=== PATIENT | male | born 1940 | race Caucasian/White ===

== ENCOUNTER 2017-05-27 01:18 | Inpatient (IN) | payer MEDICARE, BC ==
[2017-05-27] MEDS ORDERED: methylPREDNISolone Sod Succ/PF 125 MG/2 ML VIAL ONE (01:47)
[2017-05-27 01:58] LABS: Actual Bicarbonate (HCO3a) 23.3 mEq/L (22-26); Base Excess (BEa) -1.6 mEq/L (0 (+/-) 2.5); CO2 Tension 40.3 mmHg (35.0-45.0); Hematocrit-ABG 42.5 % (42.0-52.0); Hemoglobin (Hb) 13.8 g/dL (14.0-18.0); O2 Tension (PaO2) 163.4 mmHg (80.0-100.0); pH, Arterial 7.38 (7.35-7.45)
[2017-05-27 01:59] LABS: ALV-art Gradient 69.425 (0-20); Analyzer IN Cardio ER; Calcium, Ionized 1.2 mmol/L (1.12-1.30); Puncture Site RRA
[2017-05-27 02:19] LABS: #Eosinphils 0.2 thou/uL (0.0-0.7); #Monocytes 0.4 thou/uL (0.11-0.59); #Neutrophils 2.1 thou/uL (1.40-6.50); %Basophils 0.6 % (0.0-1.0); %Eosinophils 6.5 % (0.0-10.0); %Lymphocytes 26.9 % (21.0-51.0); Hemoglobin 13.8 g/dL (14.0-18.0); Mean Corpuscular Hemoglobin 30.6 pg (27.0-31.0); Mean Corpuscular Volume 90.2 fl (80.0-94.0); Mean Platelet Volume 8.3 fL (7.4-10.4); Platelet Count 128 thou/uL (130-400); RBC Distribution Width 12.4 % (11.5-14.5); Red Blood Cell (RBC) Count 4.51 mill/uL (4.70-6.10); White Blood Cell (WBC) Count 3.8 thou/uL (4.8-10.8)
[2017-05-27 02:43] LABS: ALT (SGPT) 19 U/L (8-55); AST (SGOT) 21 U/L (5-34); Albumin 4.3 g/dL (3.4-4.8); Alkaline Phosphatase 74 U/L (40-150); Anion Gap 14 mmol/L (10-20); BUN (Urea Nitrogen) 15 mg/dL (8.4-25.7); Bilirubin, Total 0.5 mg/dL (0.2-1.2); Calc. Creatinine Clearance 0 mL/min (70-130); Calcium 9.5 mg/dL (7.8-10.44); Carbon Dioxide 26 mmol/L (23-31); Chloride 104 mmol/L (98-107); Estimated GFR-MDRD 52; Globulin 3.1 g/dL (2.4-3.5); Glucose 118 mg/dL (83-110); Protein, Total 7.4 g/dL (5.8-8.1); Sodium 140 mmol/L (136-145)
[2017-05-27 02:47] LABS: CKMB 1.6 ng/mL (0-6.6); Troponin I Less than 0.010 ng/mL (< 0.028)
[2017-05-27] MEDS ORDERED: Ondansetron HCl/PF 4 MG/2 ML Vial IVP PRN (06:20)
[2017-05-27] MEDS ORDERED: Acetaminophen 325 MG TAB PO PRN ×2 (06:20→09:56)
[2017-05-27] MEDS ORDERED: Ondansetron ODT 4 MG TAB SL PRN (06:20)
[2017-05-27 06:29] VITALS: BMI 30.4
--- NOTE | 2017-05-27 07:58 | RAD ---
CHEST 2 VIEWS: HISTORY: Dyspnea. COMPARISON: 08/29/15. FINDINGS: Stable left-sided defibrillator. Slight elongation of the aorta. Normal cardiac silhouette. Pulmon reg vessels and hilum are normal. Costophrenic angles are clear. No consolidation or mass. No pneu mothorax. No osseous abnormalities. Chronic changes along the distal thoracic spine and upper lumba r spine. IMPRESSION: No acute cardiopulmonary process. POS: SHANA
[2017-05-27] MEDS ORDERED: Ibuprofen 800 MG TAB PO PRN (09:03)
[2017-05-27] MEDS ORDERED: guaiFENesin ER 600 MG TAB PO PRN (09:03)
--- NOTE | 2017-05-27 09:42 | CON ---
DATE OF CONSULTATION: 05/27/2017 CONSULTING PHYSICIAN: Hospitalist group. REASON FOR CONSULTATION: COPD exacerbation. HISTORY OF PRESENT ILLNESS: A 76-year-old male who came to the emergency room last night with increa sed wheezing and shortness of breath. He had seen his primary care doctor earlier in the day and had been given a prescription for Z-MITCHELL; however, symptoms continued and he felt he needed to get more a ggressive care. He apparently was briefly on BiPAP while in the ER, but has not been on BiPAP since transfer to the floor. He was admitted to the [facility], but because of lack of beds, he was placed in [facility] CCU. Currently he has improved and has no acute complaints. PAST MEDICAL HISTORY: 1. COPD - followed by Dr. James Smith. 2. Atrial fibrillation. 3. Hypertension. 4. Gastroesophageal reflux. PAST SURGICAL HISTORY: 1. Pacemaker placement. 2. Cardiac ablation x2. 3. Tonsillectomy and adenoidectomy. ALLERGIES: PENICILLIN. MEDICATIONS PRIOR TO ADMISSION: Lansoprazole 30 mg daily, Stiolto Respimat 2 puffs daily, bisoprolol 10 mg daily, aspirin 81 mg daily, acetaminophen 1000 mg every 6 hours as needed, fluticasone nasal s pray 1 spray each nostril daily, ibuprofen 800 mg every 6 hours as needed, and guaifenesin 1200 mg b. i.d. SOCIAL HISTORY: He was a 2 pack per day smoker for 60 years, quit over a year ago. Drinks occasiona l beer. 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 He lives at home wit h his . FAMILY MEDICAL HISTORY: His father lived to age 103. His mother at age 47 - possibly of pulmon reg embolism. Two brothers had cancer. REVIEW OF SYSTEMS: Twelve point review of systems otherwise negative. PHYSICAL EXAMINATION: VITAL SIGNS: Temperature 98.3, pulse 77, blood pressure 135/63, respiratory rate 18, O2 sat 100% on 2 liters. GENERAL: He is awake and alert, in no distress. HEENT: Pupils react. Sclerae are icteric. Oropharynx clear. NECK: Without adenopathy, JVD, or bruits. LUNGS: Clear at the current time without wheezing or rhonchi. CARDIOVASCULAR: S1, S2 regular, without murmur or gallop. He has a pacemaker pocket in the left upp er quadrant of his chest. ABDOMEN: Soft, nontender, nondistended. EXTREMITIES: No clubbing or cyanosis. NEUROLOGIC: Nonfocal. SKIN: No lesions. LABORATORY DATA: White blood cell count 3.8, hematocrit 40, platelet count 128, pH 7.38, pCO2 40, pO 2 163. Sodium 140, potassium 4, chloride 104, CO2 26, BUN 15, creatinine 1.3, glucose 118. Chest x-ray interpreted by myself demonstrates a pacemaker present left upper quadrant of the chest, he has clear diaphragms, clear lung aaron, slightly enlarged heart size. ASSESSMENT: 1. Chronic obstructive pulmonary disease with exacerbation. 2. Acute on chronic respiratory failure which has resolved. PLAN: 1. Transfer to the floor. 2. Continue antibiotics, nebs and steroids. 3. Hopefully able to go home by tomorrow. Consultation time was 50 minutes time in which greater than 50% was spent on counseling and coordinat ion of care.
[2017-05-27] MEDS ORDERED: Senokot 8.6 MG TAB PO PRN (09:56)
[2017-05-27] MEDS ORDERED: Guaifenesin DM 100-10/5 ML UDCUP PO PRN (09:56)
[2017-05-27] MEDS: Bisoprolol Fumarate 5 MG TAB PO SCH (11:25)
[2017-05-27] MEDS: Azithromycin 250 MG TAB PO SCH (11:25)
[2017-05-27] MEDS: Enoxaparin Sodium 40 MG/0.4 ML SYRINGE SC SCH (11:26)
--- NOTE | 2017-05-27 11:36 | HP ---
REASON FOR ADMISSION: Acute respiratory failure with hypoxia, acute COPD exacerbation. HISTORY OF PRESENT ILLNESS: The patient gives history of having shortness of breath, which started f rom the last 3 days. This has been progressively getting worse. He has cough with expectoration of green sputum. No fever. He has taken his flu shot for this year. The patient has history of COPD a nd does not use nebulizers, but only uses inhalers. He normally ambulates more than 300 feet at home . He is not on home oxygen. On arrival in the ER, the patient had low saturations and was placed on BiPAP. This was for a brief period of time and was admitted to [facility]. He is currently off BiPAP. H e is still wheezing. Patient had gone to see Dr. Pisano on Friday and was given a prescription for a ntibiotics, which he has taken only 1 pill so far. PAST MEDICAL AND SURGICAL HISTORY: History of COPD, AICD with biventricular pacer, history of paroxy smal atrial fibrillation, hypertension, GERD, and dyslipidemia. CURRENT MEDICATIONS: Patient is on aspirin 81 mg p.o. daily, bisoprolol 10 mg daily, Motrin p.r.n., and lansoprazole 30 mg daily. ALLERGIES: PENICILLIN. PERSONAL HISTORY: Quit smoking in 2014, but prior to which has smoked for nearly 60 years at one pac k a day. Drinks alcohol on social occasions. Lives with his . FAMILY HISTORY: Mom when he was around 12 years old and does not know the exact cause. Father of pneumonia at the age of 103 years. REVIEW OF SYSTEMS: The following complete review of systems was negative, unless otherwise mentioned in the HPI or below: Constitutional: Weight loss or gain, ability to conduct usual activities. Skin: Rash, itching. Eyes: Double vision, pain. ENT/Mouth: Nose bleeding, neck stiffness, pain, tenderness. Cardiovascular: Palpitations, dyspnea on exertion, orthopnea. Respiratory: Shortness of breath, whee zing, cough, hemoptysis, fever or night sweats. Gastrointestinal: Poor appetite, abdominal pain, hea rtburn, nausea, vomiting, constipation, or diarrhea. Genitourinary: Urgency, frequency, dysuria, noc turia. Musculoskeletal: Pain, swelling. Neurologic/Psychiatric: Anxiety, depression. Allergy/Immun ologic: Skin rash, bleeding tendency. PHYSICAL EXAMINATION: GENERAL: The patient is a 76-year-old male, who is currently in mild respiratory distress with wheez ing. VITAL SIGNS: Blood pressure 136/64, pulse 94 per minute, respiratory rate is 20 per minute, temperat ure 98.1 degrees Fahrenheit, saturating 97% on 2 liters nasal cannula at present. NECK: Supple, no elevated JVD. EYES: Extraocular muscles intact. Pupils reacting to light. Oral cavity mucous membranes are dry. No exudates or congestion. CARDIOVASCULAR: S1 and S2 heard. Regular rhythm. RESPIRATORY: Air entry 1+ bilateral. Scattered wheezes plus bilateral. ABDOMEN: Soft, bowel sounds heard. No tenderness, rigidity, or guarding. EXTREMITIES: No peripheral edema or calf tenderness. VASCULAR SYSTEM: Peripheral pulses 1+ bilateral. No ischemic ulcerations or gangrene. CENTRAL NERVOUS SYSTEM: No gross focal deficits seen. Patient is alert, awake, and oriented well. PSYCHIATRIC: The patient's mood is euthymic. No hallucinations or delusions. LABORATORY DATA: Influenza A and B antigens are negative. Chest x-ray done showed no acute cardiopu lmonary process. EKG done shows normal sinus rhythm at 72 beats per minute, no gross ST-T wave waller es. BUN 15, creatinine 1.3, serum glucose 118. Liver enzymes within normal limits. First set of ca rdiac enzymes are negative. BNP is 43. Blood gas done shows a pH of 7.38, pCO2 of 40, PO2 of 163, w dar count of 3.8, H&H 13 and 40, platelet count 128 with 55% neutrophils, and MCV is 90. CLINICAL IMPRESSION AND PLAN: The patient will be admitted to medical floor and will be shortly down graded from [facility]. He is off BiPAP a long time ago now. He is saturating well on nasal cannula. He is still wheezing and will be placed on DuoNebs q.4 hourly along with Solu-Medrol 40 mg IV q.6 hourly . He has been placed on empiric Zithromax and will be continued for now. We will also continue aspi rin, bisoprolol as before. Pepcid 20 mg twice daily. We will continue to closely monitor him for an y hemodynamic compromise. Please note Dr. Houston, natural sciences manager has already seen the patient here i n the ICU.
[2017-05-27] MEDS: Acetaminophen 500 MG TAB PO PRN (16:40)
[2017-05-27] MEDS: Budesonide 0.5 MG/2 ML NEB INH SCH (18:56)
[2017-05-27] MEDS: Arformoterol 15 MCG/2 ML NEB NEB SCH (18:56)
[2017-05-27] MEDS: Famotidine 20 MG TAB PO SCH (20:31)
[2017-05-28 05:29] LABS: #Lymphocytes 0.5 thou/uL (1.20-3.40); #Monocytes 0.2 thou/uL (0.11-0.59); #Neutrophils 4.3 thou/uL (1.40-6.50); %Eosinophils 0.1 % (0.0-10.0); %Lymphocytes 10.3 % (21.0-51.0); %Monocytes 3.9 % (0.0-10.0); %Neutrophils 85.7 % (42.0-75.0); Hemoglobin 12.8 g/dL (14.0-18.0); Mean Corpuscular HGB CONC 33.2 g/dL (32.0-36.0); Mean Corpuscular Hemoglobin 29.9 pg (27.0-31.0); Platelet Count 143 thou/uL (130-400); RBC Distribution Width 12.2 % (11.5-14.5); Red Blood Cell (RBC) Count 4.27 mill/uL (4.70-6.10)
[2017-05-28 06:01] LABS: Anion Gap 15 mmol/L (10-20); BUN (Urea Nitrogen) 27 mg/dL (8.4-25.7); Calc. Creatinine Clearance 54 mL/min (70-130); Calcium 9.1 mg/dL (7.8-10.44); Carbon Dioxide 22 mmol/L (23-31); Chloride 104 mmol/L (98-107); Estimated GFR-MDRD 46; Glucose 173 mg/dL (83-110); Potassium 4.1 mmol/L (3.5-5.1); Sodium 137 mmol/L (136-145)
[2017-05-28] MEDS: Enoxaparin Sodium 40 MG/0.4 ML SYRINGE SC SCH (07:47)
[2017-05-28] MEDS: Azithromycin 250 MG TAB PO SCH (07:47)
[2017-05-28] MEDS: Fluticasone Propionate Nasal Spray 16 gm Bottle NASAL SCH (07:47)
[2017-05-28] MEDS: Famotidine 20 MG TAB PO SCH (07:47)
[2017-05-28] MEDS: Bisoprolol Fumarate 5 MG TAB PO SCH (07:49)
[2017-05-28] MEDS: Arformoterol 15 MCG/2 ML NEB NEB SCH ×2 (08:13→18:42)
[2017-05-28] MEDS: Budesonide 0.5 MG/2 ML NEB INH SCH ×2 (08:17→18:41)
--- NOTE | 2017-05-28 10:55 | PDOC.PN ---
- Subjective Encounter Start Date: 05/28/17 Encounter Start Time: 10:15 Subjective: breathing better, slept well last night - Objective Resuscitation Status: Resuscitation Status FULL:Full Resuscitation MAR Reviewed: Yes Vital Signs & Weight: Vital Signs (12 hours) Temp Pulse Resp BP Pulse Ox 05/28/17 10:25 89 20 95 05/28/17 08:19 94 L 05/28/17 08:13 79 20 94 L 05/28/17 08:00 98.1 F 80 22 H 05/28/17 04:00 97.5 F L 82 22 H 120/56 L 93 L 05/28/17 00:00 97.5 F L 83 24 H 121/57 L 94 L Most Recent Monitor Data Heart Rate from ECG 84 NIBP 147/64 NIBP BP-Mean 80 Respiration from ECG 17 SpO2 97 I&O: 05/27/17 05/28/17 05/29/17 06:59 06:59 06:59 Intake Total 560 Output Total 950 Balance -390 Result Diagrams: 05/28/17 05:00 05/28/17 05:00 Phys Exam - Physical Examination HEENT: PERRLA, moist MMs Neck: no JVD, supple Respiratory: no rales, wheezing present Cardiovascular: RRR, no significant murmur Gastrointestinal: soft, non-tender, positive bowel sounds Musculoskeletal: no edema, pulses present Neurological: non-focal, moves all 4 limbs Psychiatric: normal affect, A&O x 3 Dx/Plan (1) Acute respiratory failure with hypoxia Code(s): J96.01 - ACUTE RESPIRATORY FAILURE WITH HYPOXIA Status: Resolved (2) COPD exacerbation Code(s): J44.1 - CHRONIC OBSTRUCTIVE PULMONARY DISEASE W (ACUTE) EXACERBATION Status: Acute (3) HTN (hypertension) Code(s): I10 - ESSENTIAL (PRIMARY) HYPERTENSION Status: Chronic Qualifiers: Hypertension type: essential hypertension Qualified Code(s): I10 - Essential (primary) hypertension (4) h/o afib Status: Chronic Comment: paroxysmal in sinus now - Plan on zithromax, nebs and steroids -: continue bystolic for htn -: will need another 24hrs of steroids, nebs -: 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 Review of Systems - Medications/Allergies Allergies/Adverse Reactions: Allergies Allergy/AdvReac Type Severity Reaction Status Date / Time Penicillins Allergy Severe Verified 05/10/15 10:24 Medications: Current Medications Acetaminophen (Tylenol) 1,000 mg PO Q6HR PRN PRN Reason: Pain Last Admin: 05/27/17 16:40 Dose: 1,000 mg Acetaminophen (Tylenol) 650 mg PO Q4H PRN PRN Reason: Headache/Fever or Pain Albuterol/Ipratropium (Duoneb) 3 ml NEB [id number] [facility] Last Admin: 05/28/17 10:25 Dose: 3 ml Arformoterol Tartrate (Brovana) 15 mcg NEB BID-RT TEE Last Admin: 05/28/17 08:13 Dose: 15 mcg Aspirin (Aspirin Chewable) 81 mg PO DAILY [facility] Last Admin: 05/28/17 07:46 Dose: 81 mg Azithromycin (Zithromax) 250 mg PO DAILY [facility] Stop: 05/30/17 09:01 Last Admin: 05/28/17 07:47 Dose: 250 mg Bisoprolol Fumarate (Zebeta) 10 mg PO DAILY [facility] Last Admin: 05/28/17 07:49 Dose: 10 mg Budesonide (Pulmicort Neb Solution) 0.5 mg INH BID-RT [facility] Last Admin: 05/28/17 08:17 Dose: 0.5 mg Enoxaparin Sodium (Lovenox) 40 mg SC 0900 [facility] Last Admin: 05/28/17 07:47 Dose: 40 mg Famotidine (Pepcid) 20 mg PO BID [facility] Last Admin: 05/28/17 07:47 Dose: 20 mg Fluticasone Propionate (Flonase Nasal [place]) 0 gm NASAL DAILY [facility] Last Admin: 05/28/17 07:47 Dose: 1 spr Guaifenesin (Mucinex) 1,200 mg PO BID PRN PRN Reason: Congestion Last Admin: 05/27/17 20:30 Dose: 1,200 mg Guaifenesin/Dextromethorphan (Robitussin Dm) 15 ml PO Q4H PRN PRN Reason: Cough Ibuprofen (Motrin) 800 mg PO Q6HR PRN PRN Reason: Fever>101/(Mi/Mod/Sev) Pain Last Admin: 05/27/17 16:40 Dose: 800 mg Methylprednisolone Sodium Succinate (Solu-Medrol) 40 mg IVP Q6HR TEE Last Admin: 05/28/17 05:35 Dose: 40 mg Senna (Senokot) 2 tab PO HSPRN PRN PRN Reason: Constipation Sodium Chloride (Flush - Normal Saline) 10 ml IVF Q12HR TEE Last Admin: 05/28/17 08:11 Dose: 10 ml Sodium Chloride (Flush - Normal Saline) 10 ml IVF PRN PRN PRN Reason: Saline Flush Last Admin: 05/28/17 05:35 Dose: 10 ml
--- NOTE | 2017-05-28 14:32 | PRG ---
DATE OF SERVICE: 02/25/2018 SERVICE: Pulmonary Medicine. INTERVAL HISTORY: The patient indicates that he is 50% back to baseline. He denies any current feve rs, chills, nausea, or vomiting. He is coughing. He is starting to liberate a little bit of sputum, which he sees is a positive thing. Each time he gets something out, he feels that his breathing is up a little bit. Otherwise, there has been no interval change to his condition. PHYSICAL EXAMINATION: VITAL SIGNS: Afebrile, pulse 89, blood pressure 120/56, respirations 20, saturation 95% on room air. GENERAL: Patient is awake, alert, in no apparent distress. LUNGS: Reduced air entry. There is a prolonged expiratory phase. Wheezing and crackles are present . No rhonchi. HEART: Normal rate, regular. ABDOMEN: Soft, nontender, nondistended. Bowel sounds positive. MUSCULOSKELETAL: No cyanosis or clubbing. No pitting in the bilateral lower extremities. NEUROLOGIC: Grossly nonfocal. LABORATORY DATA: WBC 5.0, hemoglobin 12.8, platelets 143,000. pH 7.3, pCO2 of 40, pO2 of 163. Crea tinine 1.48 and gently up trending. BUN 27. Basic metabolic profile is otherwise unremarkable. Dolly er function studies are unremarkable. BNP is 43. Influenza A and B are unremarkable. No PCR was pe rformed. ASSESSMENT: 1. Chronic obstructive pulmonary disease with acute exacerbation. 2. Acute hypoxic respiratory failure, resolved. 3. Obstructive sleep apnea, suspected. PLAN: We will deescalate his steroids. We will continue his nebulized medications and antibiotics. I am going to do a respiratory virus panel on him to prove that he does not have influenza. If he d oes, Tamiflu will be initiated. Pulmonary Critical Care will continue to follow while the patient re sary in this location. In the outpatient setting, I am committed to getting him a polysomnogram to see whether or not he suffers with sleep apnea.
[2017-05-28] MEDS: guaiFENesin ER 600 MG TAB PO SCH (19:59)
[2017-05-28] MEDS: Acetaminophen 500 MG TAB PO PRN (20:03)
[2017-05-29 05:23] LABS: Anion Gap 14 mmol/L (10-20); BUN (Urea Nitrogen) 33 mg/dL (8.4-25.7); Calc. Creatinine Clearance 61 mL/min (70-130); Calcium 9.4 mg/dL (7.8-10.44); Carbon Dioxide 24 mmol/L (23-31); Chloride 106 mmol/L (98-107); Estimated GFR-MDRD 53; Glucose 125 mg/dL (83-110); Potassium 4.3 mmol/L (3.5-5.1); Sodium 140 mmol/L (136-145)
[2017-05-29] MEDS: Arformoterol 15 MCG/2 ML NEB NEB SCH ×2 (06:37→18:30)
[2017-05-29] MEDS: Budesonide 0.5 MG/2 ML NEB INH SCH ×2 (06:38→18:29)
[2017-05-29] MEDS: guaiFENesin ER 600 MG TAB PO SCH ×2 (08:02→19:49)
[2017-05-29] MEDS: Azithromycin 250 MG TAB PO SCH (08:02)
[2017-05-29] MEDS: predniSONE 20 MG TAB PO SCH (08:03)
[2017-05-29] MEDS: Enoxaparin Sodium 40 MG/0.4 ML SYRINGE SC SCH (08:03)
[2017-05-29] MEDS: Bisoprolol Fumarate 5 MG TAB PO SCH (08:03)
[2017-05-29] MEDS: Fluticasone Propionate Nasal Spray 16 gm Bottle NASAL SCH (08:07)
--- NOTE | 2017-05-29 13:09 | PDOC.PN ---
- Subjective Encounter Start Date: 05/29/17 Encounter Start Time: 08:25 Subjective: had a rough night with sob and wheezing - Objective Resuscitation Status: Resuscitation Status FULL:Full Resuscitation MAR Reviewed: Yes Vital Signs & Weight: Vital Signs (12 hours) Temp Pulse Resp BP Pulse Ox 05/29/17 09:59 76 16 98 05/29/17 08:00 98.4 F 76 16 150/67 H 96 05/29/17 06:40 86 16 93 L 05/29/17 06:38 86 16 93 L Most Recent Monitor Data Heart Rate from ECG 84 NIBP 147/64 NIBP BP-Mean 80 Respiration from ECG 17 SpO2 97 I&O: 05/28/17 05/29/17 05/30/17 06:59 06:59 06:59 Intake Total 560 240 Output Total 950 100 Balance -390 140 Result Diagrams: 05/28/17 05:00 05/29/17 04:30 Phys Exam - Physical Examination HEENT: PERRLA, moist MMs Neck: no JVD, supple Respiratory: no rales, wheezing present Cardiovascular: RRR, no rub Gastrointestinal: soft, non-tender, positive bowel sounds Musculoskeletal: no edema, pulses present Neurological: non-focal, moves all 4 limbs Psychiatric: A&O x 3 Dx/Plan (1) Acute respiratory failure with hypoxia Code(s): J96.01 - ACUTE RESPIRATORY FAILURE WITH HYPOXIA Status: Resolved (2) COPD exacerbation Code(s): J44.1 - CHRONIC OBSTRUCTIVE PULMONARY DISEASE W (ACUTE) EXACERBATION Status: Acute (3) HTN (hypertension) Code(s): I10 - ESSENTIAL (PRIMARY) HYPERTENSION Status: Chronic Qualifiers: Hypertension type: essential hypertension Qualified Code(s): I10 - Essential (primary) hypertension (4) h/o afib Status: Chronic Comment: paroxysmal in sinus now - Plan on zithromax, prednisone -: nebs -: to amb as tolerated -: asp and bisoprolol * . Review of Systems - Medications/Allergies Allergies/Adverse Reactions: Allergies Allergy/AdvReac Type Severity Reaction Status Date / Time Penicillins Allergy Severe Verified 05/10/15 10:24 Medications: Current Medications Acetaminophen (Tylenol) 1,000 mg PO Q6HR PRN PRN Reason: Pain Last Admin: 05/28/17 20:03 Dose: 1,000 mg Acetaminophen (Tylenol) 650 mg PO Q4H PRN PRN Reason: Headache/Fever or Pain Albuterol/Ipratropium (Duoneb) 3 ml NEB [id number] Last Admin: 05/29/17 09:59 Dose: 3 ml Arformoterol Tartrate (Brovana) 15 mcg NEB BID-RT [facility] Last Admin: 05/29/17 06:37 Dose: 15 mcg Aspirin (Aspirin Chewable) 81 mg PO DAILY [facility] Last Admin: 05/29/17 08:03 Dose: 81 mg Azithromycin (Zithromax) 250 mg PO DAILY [facility] Stop: 05/30/17 09:01 Last Admin: 05/29/17 08:02 Dose: 250 mg Bisoprolol Fumarate (Zebeta) 10 mg PO DAILY [facility] Last Admin: 05/29/17 08:03 Dose: 10 mg Budesonide (Pulmicort Neb Solution) 0.5 mg INH BID-RT [facility] Last Admin: 05/29/17 06:38 Dose: 0.5 mg Enoxaparin Sodium (Lovenox) 40 mg SC 0900 [facility] Last Admin: 05/29/17 08:03 Dose: 40 mg Fluticasone Propionate (Flonase Nasal [place]) 0 gm NASAL DAILY [facility] Last Admin: 05/29/17 08:07 Dose: 1 spr Guaifenesin (Mucinex) 1,200 mg PO BID [facility] Last Admin: 05/29/17 08:02 Dose: 1,200 mg Ibuprofen (Motrin) 800 mg PO Q6HR PRN PRN Reason: Fever>101/(Mi/Mod/Sev) Pain Last Admin: 05/27/17 16:40 Dose: 800 mg Prednisone (Prednisone) 40 mg PO QAM-[facility] Stop: 06/02/17 08:01 Last Admin: 05/29/17 08:03 Dose: 40 mg Senna (Senokot) 2 tab PO HSPRN PRN PRN Reason: Constipation Sodium Chloride (Flush - Normal Saline) 10 ml IVF Q12HR [facility] Last Admin: 05/29/17 08:07 Dose: 10 ml Sodium Chloride (Flush - Normal Saline) 10 ml IVF PRN PRN PRN Reason: Saline Flush Last Admin: 05/28/17 05:35 Dose: 10 ml
[2017-05-30 06:07] LABS: Anion Gap 10 mmol/L (10-20); BUN (Urea Nitrogen) 28 mg/dL (8.4-25.7); Calc. Creatinine Clearance 78 mL/min (70-130); Calcium 9.2 mg/dL (7.8-10.44); Carbon Dioxide 27 mmol/L (23-31); Chloride 107 mmol/L (98-107); Estimated GFR-MDRD 69; Glucose 100 mg/dL (83-110); Potassium 3.9 mmol/L (3.5-5.1); Sodium 140 mmol/L (136-145)
[2017-05-30] MEDS: Arformoterol 15 MCG/2 ML NEB NEB SCH ×2 (06:37→19:15)
[2017-05-30] MEDS: Budesonide 0.5 MG/2 ML NEB INH SCH ×2 (06:41→19:16)
[2017-05-30] MEDS: Enoxaparin Sodium 40 MG/0.4 ML SYRINGE SC SCH (07:44)
[2017-05-30] MEDS: Azithromycin 250 MG TAB PO SCH (07:45)
[2017-05-30] MEDS: Bisoprolol Fumarate 5 MG TAB PO SCH (07:45)
[2017-05-30] MEDS: guaiFENesin ER 600 MG TAB PO SCH ×2 (07:45→19:55)
[2017-05-30] MEDS: Fluticasone Propionate Nasal Spray 16 gm Bottle NASAL SCH (07:46)
[2017-05-30] MEDS: predniSONE 20 MG TAB PO SCH (07:46)
[2017-05-30] MEDS ORDERED: Furosemide 40 MG/4 ML VIAL SLOW IVP SCH (09:15)
--- NOTE | 2017-05-30 09:46 | PRG ---
DATE OF SERVICE: 05/29/2017 SERVICE: Pulmonary Medicine. INTERVAL HISTORY: The patient is doing fine from a respiratory standpoint this afternoon. Overnight , he was hot and he was cold. It was not him, it was the room. Apparently, he was satting 70 degree s initially, but then he woke up later, it was 65 degrees. He had increasing respiratory distress th is morning. It is slowly clearing as the day goes on. He is coughing up a lot more sputum and it is thinner. Previously, he was unable to cough up anything. Otherwise, there has been no interval kehinde nge to his condition. PHYSICAL EXAMINATION: VITAL SIGNS: Afebrile, pulse 86, respirations 16, saturation 93% on 2 liters nasal cannula. GENERAL: Patient is awake, alert, no apparent distress. LUNGS: Decent air entry. There is prolonged expiratory phase, rhonchi and wheezing all present. Mi nimal dependent crackles are identified. HEART: Normal rate, regular. ABDOMEN: Soft, nontender, nondistended. Bowel sounds are positive. MUSCULOSKELETAL: No cyanosis or clubbing. There is no pitting in the bilateral lower extremities. NEUROLOGIC: Grossly nonfocal. LABORATORY DATA: Creatinine 1.32 and down trending. Basic metabolic profile is otherwise unremarkab le/stable. Bicarbonate is 24. Respiratory virus panel was never performed. ASSESSMENT: 1. Chronic obstructive pulmonary disease with acute exacerbation. 2. Acute hypoxic respiratory failure, resolved. 3. Obstructive sleep apnea, suspected. DISCUSSION AND PLAN: The patient will remain in the hospital. We will continue our supportive care including antibiotics, nebulized medications and steroids. The respiratory virus pathogen was receiv ed, but apparently has not resulted yet. If we do not receive the results by this afternoon, we will touch base with laboratory. We will give the patient a lab holiday tomorrow morning and provide him with a single dose of Lasix. Pulmonary Critical Care will continue to follow.
--- NOTE | 2017-05-30 12:43 | PDOC.PN ---
- Subjective Encounter Start Date: 05/30/17 Encounter Start Time: 12:00 Subjective: is better but still has sob and coughing episodes -: nose is also stuffed up - Objective Resuscitation Status: Resuscitation Status FULL:Full Resuscitation MAR Reviewed: Yes Vital Signs & Weight: Vital Signs (12 hours) Temp Pulse Resp BP Pulse Ox 05/30/17 10:15 72 18 100 05/30/17 08:00 97.8 F 88 18 143/64 H 97 05/30/17 06:41 71 20 92 L 05/30/17 06:37 71 20 92 L Most Recent Monitor Data Heart Rate from ECG 84 NIBP 147/64 NIBP BP-Mean 80 Respiration from ECG 17 SpO2 97 I&O: 05/29/17 05/30/17 05/31/17 06:59 06:59 06:59 Intake Total 240 400 240 Output Total 100 650 Balance 140 -250 240 Result Diagrams: 05/28/17 05:00 05/30/17 04:49 Phys Exam - Physical Examination HEENT: PERRLA, moist MMs Neck: no JVD, supple Respiratory: no wheezing, no rales rhonchi+ Cardiovascular: RRR, no significant murmur Gastrointestinal: soft, non-tender, positive bowel sounds Musculoskeletal: no edema, pulses present Neurological: non-focal, moves all 4 limbs Psychiatric: A&O x 3 Dx/Plan (1) Acute respiratory failure with hypoxia Code(s): J96.01 - ACUTE RESPIRATORY FAILURE WITH HYPOXIA Status: Resolved (2) COPD exacerbation Code(s): J44.1 - CHRONIC OBSTRUCTIVE PULMONARY DISEASE W (ACUTE) EXACERBATION Status: Acute (3) HTN (hypertension) Code(s): I10 - ESSENTIAL (PRIMARY) HYPERTENSION Status: Chronic Qualifiers: Hypertension type: essential hypertension Qualified Code(s): I10 - Essential (primary) hypertension (4) h/o afib Status: Chronic Comment: paroxysmal in sinus now - Plan nebs, prednisone -: off antibiotics from this am -: to amb as tolerated -: saline nasal sprays/albuterol nasal spray prn -: dc plan per pulm advice * . Review of Systems - Medications/Allergies Allergies/Adverse Reactions: Allergies Allergy/AdvReac Type Severity Reaction Status Date / Time Penicillins Allergy Severe Verified 05/10/15 10:24 Medications: Current Medications Acetaminophen (Tylenol) 1,000 mg PO Q6HR PRN PRN Reason: Pain Last Admin: 05/28/17 20:03 Dose: 1,000 mg Acetaminophen (Tylenol) 650 mg PO Q4H PRN PRN Reason: Headache/Fever or Pain Albuterol/Ipratropium (Duoneb) 3 ml NEB [id number] Last Admin: 05/30/17 10:15 Dose: 3 ml Arformoterol Tartrate (Brovana) 15 mcg NEB BID-RT [facility] Last Admin: 05/30/17 06:37 Dose: 15 mcg Aspirin (Aspirin Chewable) 81 mg PO DAILY [facility] Last Admin: 05/30/17 07:45 Dose: 81 mg Bisoprolol Fumarate (Zebeta) 10 mg PO DAILY [facility] Last Admin: 05/30/17 07:45 Dose: 10 mg Budesonide (Pulmicort Neb Solution) 0.5 mg INH BID-RT [facility] Last Admin: 05/30/17 06:41 Dose: 0.5 mg Enoxaparin Sodium (Lovenox) 40 mg SC 0900 [facility] Last Admin: 05/30/17 07:44 Dose: 40 mg Fluticasone Propionate (Flonase Nasal [place]) 0 gm NASAL DAILY [facility] Last Admin: 05/30/17 07:46 Dose: 1 spr Guaifenesin (Mucinex) 1,200 mg PO BID [facility] Last Admin: 05/30/17 07:45 Dose: 1,200 mg Ibuprofen (Motrin) 800 mg PO Q6HR PRN PRN Reason: Fever>101/(Mi/Mod/Sev) Pain Last Admin: 05/27/17 16:40 Dose: 800 mg Prednisone (Prednisone) 40 mg PO QAM-WM REPL[facility] Stop: 06/02/17 08:01 Last Admin: 05/30/17 07:46 Dose: 40 mg Senna (Senokot) 2 tab PO HSPRN PRN PRN Reason: Constipation Sodium Chloride (Flush - Normal Saline) 10 ml IVF Q12HR [facility] Last Admin: 05/30/17 07:46 Dose: 10 ml Sodium Chloride (Flush - Normal Saline) 10 ml IVF PRN PRN PRN Reason: Saline Flush Last Admin: 05/28/17 05:35 Dose: 10 ml
[2017-05-30] MEDS: Acetaminophen 500 MG TAB PO PRN (15:08)
--- NOTE | 2017-05-30 20:36 | PRG ---
DATE OF SERVICE: 05/30/2017 SERVICE: Pulmonary Medicine. INTERVAL HISTORY: The patient is doing much better today. He denies any current fevers, chills, derick sea, or vomiting. Otherwise, there has been no interval change to his condition. He has better outl ook on how things are going. He thinks that if he continues to make improvements, he will likely be able to get out of the hospital tomorrow morning. He has been walking. Today, he walked around the unit on 6 separate occasions. PHYSICAL EXAMINATION: VITAL SIGNS: Afebrile, pulse 78, blood pressure 143/64, respirations 20, saturation 96% on 2 liters nasal cannula. GENERAL: Patient is awake, alert, in no apparent distress. LUNGS: Much improved air entry. There is still prolonged expiratory phase with polyphonic wheeze to day. Rhonchi are gone now. No crackles. HEART: Normal rate, regular. ABDOMEN: Soft, nontender, nondistended. Bowel sounds are positive. MUSCULOSKELETAL: No cyanosis or clubbing. There is no pitting in the bilateral lower extremities. NEUROLOGIC: Grossly nonfocal. LABORATORY DATA: Creatinine 1.04. Basic metabolic profile is otherwise unremarkable. ASSESSMENT: 1. Chronic obstructive pulmonary disease with acute exacerbation. 2. Acute hypoxic respiratory failure, resolving. 3. Obstructive sleep apnea, suspected. DISCUSSION AND PLAN: The patient will follow up with me in the outpatient setting. If he continues to improve by tomorrow, he will be stable for transition out of the hospital. He will need to comple te 5 days of steroids, and resume his home inhalers on discharge from the hospital, 5 days of antibio tics will also be indicated. Pulmonary will continue to follow while the patient remains in house, b ut hopefully, I will transition home in the morning.
[2017-05-31] MEDS: Bisoprolol Fumarate 5 MG TAB PO SCH (07:55)
[2017-05-31] MEDS: predniSONE 20 MG TAB PO SCH (07:56)
[2017-05-31] MEDS: guaiFENesin ER 600 MG TAB PO SCH ×2 (07:56→20:02)
[2017-05-31] MEDS: Fluticasone Propionate Nasal Spray 16 gm Bottle NASAL SCH (07:57)
[2017-05-31] MEDS: Enoxaparin Sodium 40 MG/0.4 ML SYRINGE SC SCH (07:58)
[2017-05-31] MEDS: Budesonide 0.5 MG/2 ML NEB INH SCH ×2 (08:13→18:13)
[2017-05-31] MEDS: Arformoterol 15 MCG/2 ML NEB NEB SCH ×2 (08:13→18:12)
--- NOTE | 2017-05-31 11:31 | PDOC.PN ---
- Subjective Encounter Start Date: 05/31/17 Encounter Start Time: 08:20 Subjective: still has sob, is amb in hallway -: says he is not ready to go home yet - Objective Resuscitation Status: Resuscitation Status FULL:Full Resuscitation MAR Reviewed: Yes Vital Signs & Weight: Vital Signs (12 hours) Temp Pulse Resp BP Pulse Ox 05/31/17 08:13 80 14 05/31/17 08:00 98.0 F 89 18 149/72 H 92 L 05/31/17 03:34 94 L Most Recent Monitor Data Heart Rate from ECG 84 NIBP 147/64 NIBP BP-Mean 80 Respiration from ECG 17 SpO2 97 I&O: 05/30/17 05/31/17 06/01/17 06:59 06:59 06:59 Intake Total 400 1070 240 Output Total 650 2100 Balance -250 -1030 240 Result Diagrams: 05/28/17 05:00 05/30/17 04:49 Phys Exam - Physical Examination HEENT: PERRLA, moist MMs Neck: no JVD, supple Respiratory: no wheezing, no rales rhonchi++ Cardiovascular: RRR, no significant murmur Gastrointestinal: soft, non-tender, positive bowel sounds Musculoskeletal: no edema, pulses present Neurological: non-focal, moves all 4 limbs Psychiatric: A&O x 3 Dx/Plan (1) Acute respiratory failure with hypoxia Code(s): J96.01 - ACUTE RESPIRATORY FAILURE WITH HYPOXIA Status: Resolved (2) COPD exacerbation Code(s): J44.1 - CHRONIC OBSTRUCTIVE PULMONARY DISEASE W (ACUTE) EXACERBATION Status: Acute (3) HTN (hypertension) Code(s): I10 - ESSENTIAL (PRIMARY) HYPERTENSION Status: Chronic Qualifiers: Hypertension type: essential hypertension Qualified Code(s): I10 - Essential (primary) hypertension (4) h/o afib Status: Chronic Comment: paroxysmal in sinus now - Plan his viral pcr came back today (collected on ) +ve for infl B and rsv -: is out of window to treat -: continue nebs, steroids, supportive care -: finished course of zithromax yesterday -: likely dc plan in am * . Review of Systems - Medications/Allergies Allergies/Adverse Reactions: Allergies Allergy/AdvReac Type Severity Reaction Status Date / Time Penicillins Allergy Severe Verified 05/10/15 10:24 Medications: Current Medications Acetaminophen (Tylenol) 1,000 mg PO Q6HR PRN PRN Reason: Pain Last Admin: 05/30/17 15:08 Dose: 1,000 mg Acetaminophen (Tylenol) 650 mg PO Q4H PRN PRN Reason: Headache/Fever or Pain Albuterol/Ipratropium (Duoneb) 3 ml NEB [id number] [facility] Last Admin: 05/31/17 08:13 Dose: 3 ml Arformoterol Tartrate (Brovana) 15 mcg NEB BID-RT [facility] Last Admin: 05/31/17 08:13 Dose: 15 mcg Aspirin (Aspirin Chewable) 81 mg PO DAILY [facility] Last Admin: 05/31/17 07:56 Dose: 81 mg Bisoprolol Fumarate (Zebeta) 10 mg PO DAILY [facility] Last Admin: 05/31/17 07:55 Dose: 10 mg Budesonide (Pulmicort Neb Solution) 0.5 mg INH BID-RT [facility] Last Admin: 05/31/17 08:13 Dose: 0.5 mg Enoxaparin Sodium (Lovenox) 40 mg SC 0900 [facility] Last Admin: 05/31/17 07:58 Dose: 40 mg Fluticasone Propionate (Flonase Nasal [place]) 0 gm NASAL DAILY [facility] Last Admin: 05/31/17 07:57 Dose: 1 spr Guaifenesin (Mucinex) 1,200 mg PO BID [facility] Last Admin: 05/31/17 07:56 Dose: 1,200 mg Ibuprofen (Motrin) 800 mg PO Q6HR PRN PRN Reason: Fever>101/(Mi/Mod/Sev) Pain Last Admin: 05/27/17 16:40 Dose: 800 mg Prednisone (Prednisone) 40 mg PO QAM-WM [facility] Stop: 06/02/17 08:01 Last Admin: 05/31/17 07:56 Dose: 40 mg Senna (Senokot) 2 tab PO HSPRN PRN PRN Reason: Constipation Sodium Chloride (Flush - Normal Saline) 10 ml IVF Q12HR [facility] Last Admin: 05/31/17 07:58 Dose: 10 ml Sodium Chloride (Flush - Normal Saline) 10 ml IVF PRN PRN PRN Reason: Saline Flush Last Admin: 05/28/17 05:35 Dose: 10 ml
[2017-05-31] MEDS ORDERED: Polyethylene Glycol 3350 17 GM Packet PO SCH (15:30)
--- NOTE | 2017-05-31 18:27 | PRG ---
DATE OF SERVICE: 05/31/2017 SUBJECTIVE: Ezekiel Allen says he is feeling a little better everyday. OBJECTIVE: VITAL SIGNS: He is afebrile, heart rate is in the 80s, respiratory rate in the teens, oximetry is 96 on 2 liters, blood pressure 149/72. LUNGS: Still remarkable for diffuse wheezes. Expiratory phase is not overly prolonged. LABORATORY DATA: There is no new lab. Electrolytes yesterday were normal. IMPRESSION: 1. Chronic obstructive pulmonary disease exacerbation. 2. Acute hypoxic respiratory failure, resolving. 3. Sleep apnea, suspected. He is probably not ready to go home based on my interaction with him and his sense of well being. I answered all of his questions.
[2017-05-31] MEDS: Acetaminophen 500 MG TAB PO PRN (20:02)
[2017-06-01] MEDS: Arformoterol 15 MCG/2 ML NEB NEB SCH ×2 (07:40→18:48)
[2017-06-01] MEDS: Budesonide 0.5 MG/2 ML NEB INH SCH ×2 (07:40→18:50)
[2017-06-01] MEDS: Enoxaparin Sodium 40 MG/0.4 ML SYRINGE SC SCH (08:21)
[2017-06-01] MEDS: guaiFENesin ER 600 MG TAB PO SCH ×2 (08:21→20:33)
[2017-06-01] MEDS: Bisoprolol Fumarate 5 MG TAB PO SCH (08:21)
[2017-06-01] MEDS: Polyethylene Glycol 3350 17 GM Packet PO SCH (08:21)
[2017-06-01] MEDS: predniSONE 20 MG TAB PO SCH (08:22)
[2017-06-01] MEDS: Fluticasone Propionate Nasal Spray 16 gm Bottle NASAL SCH (08:31)
--- NOTE | 2017-06-01 11:34 | PDOC.PN ---
- Subjective Encounter Start Date: 06/01/17 Encounter Start Time: 08:35 Subjective: says he is not ready to go home, slept well last night -: has headache and fullness in his sinuses -: breathing is better but still laboured at times per patient - Objective Resuscitation Status: Resuscitation Status FULL:Full Resuscitation MAR Reviewed: Yes Vital Signs & Weight: Vital Signs (12 hours) Temp Pulse Resp BP Pulse Ox 06/01/17 11:25 67 16 96 06/01/17 08:00 99.0 F 87 20 98 06/01/17 07:49 99.0 F 87 20 177/81 H 94 L 06/01/17 07:37 61 20 95 06/01/17 03:44 97 06/01/17 01:58 64 16 96 Most Recent Monitor Data Heart Rate from ECG 84 NIBP 147/64 NIBP BP-Mean 80 Respiration from ECG 17 SpO2 97 I&O: 05/31/17 06/01/17 06/02/17 06:59 06:59 06:59 Intake Total 1070 840 240 Output Total 2100 1800 Balance -1030 -960 240 Result Diagrams: 05/28/17 05:00 05/30/17 04:49 Phys Exam - Physical Examination HEENT: PERRLA, moist MMs Neck: no JVD, supple Respiratory: no wheezing, no rales rhonchi+ Cardiovascular: RRR, no significant murmur Gastrointestinal: soft, non-tender, positive bowel sounds Musculoskeletal: no edema, pulses present Neurological: non-focal, moves all 4 limbs Psychiatric: A&O x 3 Dx/Plan (1) Acute respiratory failure with hypoxia Code(s): J96.01 - ACUTE RESPIRATORY FAILURE WITH HYPOXIA Status: Resolved (2) COPD exacerbation Code(s): J44.1 - CHRONIC OBSTRUCTIVE PULMONARY DISEASE W (ACUTE) EXACERBATION Status: Acute (3) HTN (hypertension) Code(s): I10 - ESSENTIAL (PRIMARY) HYPERTENSION Status: Chronic Qualifiers: Hypertension type: essential hypertension Qualified Code(s): I10 - Essential (primary) hypertension (4) h/o afib Status: Chronic Comment: paroxysmal in sinus now - Plan post viral syndrome (rsv and infl B) with headache and fullness of sinuses -: on flonase nasal spray, will add some saline sprays as well with mucinex/te -: -ssalon and alb nasal spray prn -: is on prednisone, finished course of zithromax, nebs -: is amb in [place], dc pt home when he is comfortable to go * . Review of Systems - Medications/Allergies Allergies/Adverse Reactions: Allergies Allergy/AdvReac Type Severity Reaction Status Date / Time Penicillins Allergy Severe Verified 05/10/15 10:24 Medications: Current Medications Acetaminophen (Tylenol) 1,000 mg PO Q6HR PRN PRN Reason: Pain Last Admin: 05/31/17 20:02 Dose: 1,000 mg Acetaminophen (Tylenol) 650 mg PO Q4H PRN PRN Reason: Headache/Fever or Pain Albuterol/Ipratropium (Duoneb) 3 ml NEB [id number] [facility] Last Admin: 06/01/17 11:25 Dose: 3 ml Arformoterol Tartrate (Brovana) 15 mcg NEB BID-RT [facility] Last Admin: 06/01/17 07:40 Dose: 15 mcg Aspirin (Aspirin Chewable) 81 mg PO DAILY [facility] Last Admin: 06/01/17 08:22 Dose: 81 mg Benzonatate (Tessalon) 100 mg PO TID [facility] Bisoprolol Fumarate (Zebeta) 10 mg PO DAILY [facility] Last Admin: 06/01/17 08:21 Dose: 10 mg Budesonide (Pulmicort Neb Solution) 0.5 mg INH BID-RT [facility] Last Admin: 06/01/17 07:40 Dose: 0.5 mg Enoxaparin Sodium (Lovenox) 40 mg SC 0900 [facility] Last Admin: 06/01/17 08:21 Dose: 40 mg Fluticasone Propionate (Flonase Nasal [place]) 0 gm NASAL DAILY [facility] Last Admin: 06/01/17 08:31 Dose: 1 spr Guaifenesin (Mucinex) 1,200 mg PO BID [facility] Last Admin: 06/01/17 08:21 Dose: 1,200 mg Ibuprofen (Motrin) 400 mg PO TID [facility] Polyethylene Glycol (Miralax) 17 gm PO DAILY [facility] Last Admin: 06/01/17 08:21 Dose: 17 gm Prednisone (Prednisone) 40 mg PO QAM-[facility] Stop: 06/02/17 08:01 Last Admin: 06/01/17 08:22 Dose: 40 mg Senna (Senokot) 2 tab PO HSPRN PRN PRN Reason: Constipation Sodium Chloride (Flush - Normal Saline) 10 ml IVF Q12HR [facility] Last Admin: 06/01/17 08:31 Dose: 10 ml Sodium Chloride (Flush - Normal Saline) 10 ml IVF PRN PRN PRN Reason: Saline Flush Last Admin: 05/28/17 05:35 Dose: 10 ml
[2017-06-01] MEDS: Benzonatate 100 MG CAP PO SCH ×2 (15:28→20:33)
[2017-06-01] MEDS: Ibuprofen 200 MG TAB PO SCH ×2 (15:28→20:34)
--- NOTE | 2017-06-01 17:57 | PRG ---
DATE OF SERVICE: 06/01/2017 SUBJECTIVE: Mr. Allen is doing well. He says he is nowhere near ready to go home. OBJECTIVE: GENERAL: On exam, he still has diffuse wheezes. He does have a little more air movement. He says h e may be a tiny bit better today. Still has resting tachycardias. He is afebrile. Respiratory rate is in the teens, oximetry is 98% on 2 liters and blood pressure 131/74. HEART: Regular rhythm. ABDOMEN: Soft. LABORATORY DATA: White count 9.7, hemoglobin 8.7 and platelets 444. Sodium 138, potassium 3.4, chloride 105, bicarbonate 21, BUN 31 and creatinine 1.17. IMPRESSION: 1. Chronic obstructive pulmonary disease exacerbation. 2. Deconditioning. 3. Obesity. 4. Asthma. 5. Acute on chronic respiratory failure. PLAN: Continue current care.
[2017-06-01] MEDS ORDERED: Mag-Al 1200 mg/1200 mg/30 ML UDCUP PO SCH (20:30)
[2017-06-01] MEDS: Sodium Chloride 0.65% Nasal 44 ML BOT EA NARE SCH (20:51)
[2017-06-01] MEDS: Ipratropium Bromide 0.06% Nasal Inhaler 15ml NASAL SCH (20:51)
[2017-06-02] MEDS: Arformoterol 15 MCG/2 ML NEB NEB SCH ×2 (06:36→19:21)
[2017-06-02] MEDS: Budesonide 0.5 MG/2 ML NEB INH SCH ×2 (06:50→19:21)
[2017-06-02] MEDS: guaiFENesin ER 600 MG TAB PO SCH ×2 (09:31→20:42)
[2017-06-02] MEDS: Ibuprofen 200 MG TAB PO SCH ×3 (09:31→20:42)
[2017-06-02] MEDS: Benzonatate 100 MG CAP PO SCH ×3 (09:32→20:42)
[2017-06-02] MEDS: Enoxaparin Sodium 40 MG/0.4 ML SYRINGE SC SCH (09:32)
[2017-06-02] MEDS: Fluticasone Propionate Nasal Spray 16 gm Bottle NASAL SCH (09:32)
[2017-06-02] MEDS: Ipratropium Bromide 0.06% Nasal Inhaler 15ml NASAL SCH ×2 (09:33→20:47)
[2017-06-02] MEDS: Sodium Chloride 0.65% Nasal 44 ML BOT EA NARE SCH ×2 (09:33→20:43)
[2017-06-02] MEDS: Polyethylene Glycol 3350 17 GM Packet PO SCH (09:34)
[2017-06-02] MEDS: Bisoprolol Fumarate 5 MG TAB PO SCH (09:48)
--- NOTE | 2017-06-02 10:02 | PRG ---
DATE OF SERVICE: 06/02/2017 The patient is still weak, having a difficult time with his breathing. PHYSICAL EXAMINATION: VITAL SIGNS: Temperature is 97.2, pulse 82, respirations 16, O2 sat 95%, blood pressure 142/62. HEENT: Unremarkable. NECK: No JVD. LUNGS: Diffuse mild wheezing. CARDIAC: S1 and S2 regular. ABDOMEN: Soft. EXTREMITIES: No edema. ASSESSMENT: 1. Chronic obstructive pulmonary disease with exacerbation. 2. Deconditioning. PLAN: I will restart his steroids. Continue nebulization treatments. Increase activity as tolerate d. Hopefully home in 24-48 hours if he does well.
[2017-06-02] MEDS: predniSONE 20 MG TAB PO SCH ×2 (10:11→20:47)
--- NOTE | 2017-06-02 12:58 | PDOC.PN ---
- Subjective Encounter Start Date: 06/02/17 Encounter Start Time: 11:25 Subjective: feels still weak and has trouble with headache and breathing with nasal annita -: -ffiness, nasal inhalers have helped a bit - Objective Resuscitation Status: Resuscitation Status FULL:Full Resuscitation MAR Reviewed: Yes Vital Signs & Weight: Vital Signs (12 hours) Temp Pulse Resp BP Pulse Ox 06/02/17 10:25 75 14 97 06/02/17 08:40 97.2 F L 75 14 95 06/02/17 07:35 97.2 F L 62 16 142/62 H 95 06/02/17 06:36 72 14 96 06/02/17 04:28 97.8 F 70 22 H 136/62 95 06/02/17 02:32 68 12 Most Recent Monitor Data Heart Rate from ECG 84 NIBP 147/64 NIBP BP-Mean 80 Respiration from ECG 17 SpO2 97 I&O: 06/01/17 06/02/17 06/03/17 06:59 06:59 06:59 Intake Total 840 1310 Output Total 1800 Balance -960 1310 Result Diagrams: 05/28/17 05:00 05/30/17 04:49 Phys Exam - Physical Examination HEENT: PERRLA, moist MMs Neck: no JVD, supple Respiratory: no wheezing, no rales rhonchi+ Cardiovascular: RRR, no significant murmur Gastrointestinal: soft, non-tender, positive bowel sounds Musculoskeletal: no edema, pulses present Neurological: non-focal, moves all 4 limbs Psychiatric: A&O x 3 Dx/Plan (1) Acute respiratory failure with hypoxia Code(s): J96.01 - ACUTE RESPIRATORY FAILURE WITH HYPOXIA Status: Resolved (2) COPD exacerbation Code(s): J44.1 - CHRONIC OBSTRUCTIVE PULMONARY DISEASE W (ACUTE) EXACERBATION Status: Acute (3) HTN (hypertension) Code(s): I10 - ESSENTIAL (PRIMARY) HYPERTENSION Status: Chronic Qualifiers: Hypertension type: essential hypertension Qualified Code(s): I10 - Essential (primary) hypertension (4) h/o afib Status: Chronic Comment: paroxysmal in sinus now - Plan post viral syndrome with copd exacerbation -: is amb in hallway per staff without oxygen mostly -: room air spo2 is 95% -: finished course of zithromax -: on oral steroids, nebs. Has slow recovery, dc plan per pulm advice * . Review of Systems - Medications/Allergies Allergies/Adverse Reactions: Allergies Allergy/AdvReac Type Severity Reaction Status Date / Time Penicillins Allergy Severe Verified 05/10/15 10:24 Medications: Current Medications Acetaminophen (Tylenol) 1,000 mg PO Q6HR PRN PRN Reason: Pain Last Admin: 05/31/17 20:02 Dose: 1,000 mg Acetaminophen (Tylenol) 650 mg PO Q4H PRN PRN Reason: Headache/Fever or Pain Albuterol/Ipratropium (Duoneb) 3 ml NEB [id number] [facility] Last Admin: 06/02/17 10:25 Dose: 3 ml Arformoterol Tartrate (Brovana) 15 mcg NEB BID-RT [facility] Last Admin: 06/02/17 06:36 Dose: 15 mcg Aspirin (Aspirin Chewable) 81 mg PO DAILY [facility] Last Admin: 06/02/17 09:31 Dose: 81 mg Benzonatate (Tessalon) 100 mg PO TID [facility] Last Admin: 06/02/17 09:32 Dose: 100 mg Bisoprolol Fumarate (Zebeta) 10 mg PO DAILY [facility] Last Admin: 06/02/17 09:48 Dose: 10 mg Budesonide (Pulmicort Neb Solution) 0.5 mg INH BID-RT [facility] Last Admin: 06/02/17 06:50 Dose: 0.5 mg Enoxaparin Sodium (Lovenox) 40 mg SC 0900 [facility] Last Admin: 06/02/17 09:32 Dose: 40 mg Fluticasone Propionate (Flonase Nasal [place]) 0 gm NASAL DAILY [facility] Last Admin: 06/02/17 09:32 Dose: 1 spr Guaifenesin (Mucinex) 1,200 mg PO BID [facility] Last Admin: 06/02/17 09:31 Dose: 1,200 mg Ibuprofen (Motrin) 400 mg PO TID [facility] Last Admin: 06/02/17 09:31 Dose: 400 mg Ipratropium [place] (Atrovent 0.06% Nasal Inhaler) 0 ml NASAL BID [facility] Last Admin: 06/02/17 09:33 Dose: 1 spr Pantoprazole Sodium (Protonix) 40 mg PO QPM [facility] Last Admin: 06/01/17 20:35 Dose: 40 mg Polyethylene Glycol (Miralax) 17 gm PO DAILY [facility] Last Admin: 06/02/17 09:34 Dose: 17 gm Prednisone (Prednisone) 20 mg PO BID [facility] Senna (Senokot) 2 tab PO HSPRN PRN PRN Reason: Constipation Sodium Chloride (Flush - Normal Saline) 10 ml IVF Q12HR [facility] Last Admin: 06/02/17 09:34 Dose: 10 ml Sodium Chloride (Flush - Normal Saline) 10 ml IVF PRN PRN PRN Reason: Saline Flush Last Admin: 05/28/17 05:35 Dose: 10 ml Sodium Chloride ([place] Nasal [place] 0.65%) 0 ml EA NARE BID [facility] Last Admin: 06/02/17 09:33 Dose: 2 spr
[2017-06-03] MEDS: Arformoterol 15 MCG/2 ML NEB NEB SCH ×2 (06:42→21:35)
[2017-06-03] MEDS: Budesonide 0.5 MG/2 ML NEB INH SCH ×2 (06:46→21:38)
--- NOTE | 2017-06-03 08:54 | PRG ---
DATE OF SERVICE: 06/03/2017 The patient feels better. PHYSICAL EXAMINATION: VITAL SIGNS: Temperature 97.7, pulse 80, respiration 14, O2 sat 94% on room air. HEENT: Unremarkable. NECK: No JVD. CHEST: Clear without wheezing. CARDIAC: S1 and S2 regular. ABDOMEN: Soft. EXTREMITIES: No edema. ASSESSMENT: 1. Chronic obstructive pulmonary disease with exacerbation. 2. Deconditioning. PLAN: From my standpoint, he is stable for discharge. From an outpatient medication standpoint, I angela eaton put him back on his Stiolto at the admission and the Brovana and Pulmicort can be stopped that aaliyah webb was getting inpatient. I would taper his steroids over a week or two. He has probably had enough in the way of antibiotics. He follows with Dr. Smith in the clinic and this needs to be in 3-4 we ks.
[2017-06-03] MEDS: Bisoprolol Fumarate 5 MG TAB PO SCH (09:19)
[2017-06-03] MEDS: Ibuprofen 200 MG TAB PO SCH ×3 (09:19→21:15)
[2017-06-03] MEDS: Ipratropium Bromide 0.06% Nasal Inhaler 15ml NASAL SCH ×2 (09:20→21:20)
[2017-06-03] MEDS: Benzonatate 100 MG CAP PO SCH ×3 (09:20→21:14)
[2017-06-03] MEDS: Sodium Chloride 0.65% Nasal 44 ML BOT EA NARE SCH ×2 (09:20→21:23)
[2017-06-03] MEDS: guaiFENesin ER 600 MG TAB PO SCH ×2 (09:20→21:15)
[2017-06-03] MEDS: predniSONE 20 MG TAB PO SCH ×2 (09:21→21:14)
[2017-06-03] MEDS: Polyethylene Glycol 3350 17 GM Packet PO SCH (09:22)
[2017-06-03] MEDS: Fluticasone Propionate Nasal Spray 16 gm Bottle NASAL SCH (09:23)
[2017-06-03] MEDS: Enoxaparin Sodium 40 MG/0.4 ML SYRINGE SC SCH (09:29)
--- NOTE | 2017-06-03 13:52 | PDOC.PN ---
- Subjective Encounter Start Date: 06/03/17 Encounter Start Time: 10:00 patient is seen today, alert and oriented. He is not comfortable going home and says he cannot walk to the Bathroom without SOB and wheezing. - Objective Resuscitation Status: Resuscitation Status FULL:Full Resuscitation MAR Reviewed: Yes Vital Signs & Weight: Vital Signs (12 hours) Temp Pulse Resp Pulse Ox 06/03/17 10:13 85 14 06/03/17 08:05 97.7 F 80 14 94 L 06/03/17 06:42 80 14 94 L 06/03/17 02:32 76 16 97 Most Recent Monitor Data Heart Rate from ECG 84 NIBP 147/64 NIBP BP-Mean 80 Respiration from ECG 17 SpO2 97 I&O: 06/02/17 06/03/17 06/04/17 06:59 06:59 06:59 Intake Total 1310 1370 Balance 1310 1370 Result Diagrams: 05/28/17 05:00 05/30/17 04:49 Radiology Reviewed by me: Yes Phys Exam - Physical Examination HEENT: PERRLA, moist MMs Neck: no nodes, no JVD Respiratory: wheezing present Cardiovascular: RRR, no significant murmur Gastrointestinal: soft, non-tender Musculoskeletal: no edema, pulses present Neurological: non-focal, normal sensation Lymphatic: no nodes Psychiatric: normal affect, A&O x 3 Skin: no rash, normal turgor Dx/Plan (1) COPD exacerbation Code(s): J44.1 - CHRONIC OBSTRUCTIVE PULMONARY DISEASE W (ACUTE) EXACERBATION Status: Acute Comment: Patient is on PO steroids and NEb treatments, he remains SOb and very wheezy, will continue to Monitor him and do walking desaturation test. High risk for Readmission. (2) HTN (hypertension) Code(s): I10 - ESSENTIAL (PRIMARY) HYPERTENSION Status: Chronic Qualifiers: Hypertension type: essential hypertension Qualified Code(s): I10 - Essential (primary) hypertension Comment: well contirolled, continue home meds. (3) h/o afib Status: Chronic Comment: paroxysmal in sinus now (4) Acute respiratory failure with hypoxia Code(s): J96.01 - ACUTE RESPIRATORY FAILURE WITH HYPOXIA Status: Resolved Comment: pt is off of oxygen, but feels SOB on walking, will see if he is desaturating. Will ask RT to do Saturation test. - Plan cont current plan of care, PT/OT, respiratory therapy, incentive spirometry, out of bed/ambulate, DVT proph w/lovenox * . - Discharge Day Encounter end time: 10:35 Review of Systems - Review of Systems Constitutional: negative: fever, chills, sweats, weakness, malaise, other Eyes: negative: Pain, Vision Change, Conjunctivae Inflammation, Eyelid Inflammation, Redness, Other ENT: negative: Ear Pain, Ear Discharge, Nose Pain, Nose Discharge, Nose Congestion, Mouth Pain, Mouth Swelling, Throat Pain, Throat Swelling, Other Respiratory: Shortness of Breath, SOB with Excertion, Sputum, Wheezing Cardiovascular: negative: chest pain, palpitations, orthopnea, paroxysmal nocturnal dyspnea, edema, light headedness, other Gastrointestinal: negative: Nausea, Vomiting, Abdominal Pain, Diarrhea, Constipation, Melena, Hematochezia, Other Genitourinary: negative: Dysuria, Frequency, Incontinence, Hematuria, Retention , Other Musculoskeletal: negative: Neck Pain, Shoulder Pain, Arm Pain, Back Pain, Hand Pain, Leg Pain, Foot Pain, Other Skin: negative: Rash, Lesions, Madi, Bruising, Other - Medications/Allergies Allergies/Adverse Reactions: Allergies Allergy/AdvReac Type Severity Reaction Status Date / Time Penicillins Allergy Severe Verified 05/10/15 10:24 Medications: Current Medications Acetaminophen (Tylenol) 1,000 mg PO Q6HR PRN PRN Reason: Pain Last Admin: 05/31/17 20:02 Dose: 1,000 mg Acetaminophen (Tylenol) 650 mg PO Q4H PRN PRN Reason: Headache/Fever or Pain Albuterol/Ipratropium (Duoneb) 3 ml NEB [id number] [facility] Last Admin: 06/03/17 10:13 Dose: 3 ml Arformoterol Tartrate (Brovana) 15 mcg NEB BID-RT [facility] Last Admin: 06/03/17 06:42 Dose: 15 mcg Aspirin (Aspirin Chewable) 81 mg PO DAILY [facility] Last Admin: 06/03/17 09:18 Dose: 81 mg Benzonatate (Tessalon) 100 mg PO TID [facility] Last Admin: 06/03/17 09:20 Dose: 100 mg Bisoprolol Fumarate (Zebeta) 10 mg PO DAILY [facility] Last Admin: 06/03/17 09:19 Dose: 10 mg Budesonide (Pulmicort Neb Solution) 0.5 mg INH BID-RT [facility] Last Admin: 06/03/17 06:46 Dose: 0.5 mg Enoxaparin Sodium (Lovenox) 40 mg SC 0900 [facility] Last Admin: 06/03/17 09:29 Dose: 40 mg Fluticasone Propionate (Flonase Nasal [place]) 0 gm NASAL DAILY [facility] Last Admin: 06/03/17 09:23 Dose: 1 spr Guaifenesin (Mucinex) 1,200 mg PO BID [facility] Last Admin: 06/03/17 09:20 Dose: 1,200 mg Ibuprofen (Motrin) 400 mg PO TID [facility] Last Admin: 06/03/17 09:19 Dose: 400 mg Ipratropium [place] (Atrovent 0.06% Nasal Inhaler) 0 ml NASAL BID [facility] Last Admin: 06/03/17 09:20 Dose: 2 spr Pantoprazole Sodium (Protonix) 40 mg PO QPM [facility] Last Admin: 06/02/17 20:42 Dose: 40 mg Polyethylene Glycol (Miralax) 17 gm PO DAILY [facility] Last Admin: 06/03/17 09:22 Dose: Not Given Prednisone (Prednisone) 20 mg PO BID [facility] Last Admin: 06/03/17 09:21 Dose: 20 mg Senna (Senokot) 2 tab PO HSPRN PRN PRN Reason: Constipation Sodium Chloride (Flush - Normal Saline) 10 ml IVF Q12HR [facility] Last Admin: 06/03/17 09:24 Dose: 10 ml Sodium Chloride (Flush - Normal Saline) 10 ml IVF PRN PRN PRN Reason: Saline Flush Last Admin: 05/28/17 05:35 Dose: 10 ml Sodium Chloride ([place] Nasal [place] 0.65%) 0 ml EA NARE BID [facility] Last Admin: 06/03/17 09:20 Dose: 2 spr
--- NOTE | 2017-06-03 15:57 | RAD ---
SINGLE VIEW OF THE CHEST: Comparison: 05-27-17 History: Shortness of breath. FINDINGS: Single view of the chest shows a normal sized cardiomediastinal silhouette. 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 There is no evidence of consolidation, mass, or pleural effusions. Degenerative change s are seen in the spine. IMPRESSION: No evidence of acute cardiopulmonary disease. POS: [facility]
[2017-06-04] MEDS: Budesonide 0.5 MG/2 ML NEB INH SCH (06:59)
[2017-06-04] MEDS: Enoxaparin Sodium 40 MG/0.4 ML SYRINGE SC SCH (07:53)
[2017-06-04] MEDS: Ibuprofen 200 MG TAB PO SCH ×2 (07:54→15:01)
[2017-06-04] MEDS: guaiFENesin ER 600 MG TAB PO SCH (07:55)
[2017-06-04] MEDS: Benzonatate 100 MG CAP PO SCH ×2 (07:55→15:01)
[2017-06-04] MEDS: predniSONE 20 MG TAB PO SCH (07:55)
[2017-06-04] MEDS: Polyethylene Glycol 3350 17 GM Packet PO SCH (07:56)
[2017-06-04] MEDS: Sodium Chloride 0.65% Nasal 44 ML BOT EA NARE SCH (07:56)
[2017-06-04] MEDS: Fluticasone Propionate Nasal Spray 16 gm Bottle NASAL SCH (07:57)
[2017-06-04] MEDS: Bisoprolol Fumarate 5 MG TAB PO SCH (08:12)
[2017-06-04] MEDS: Arformoterol 15 MCG/2 ML NEB NEB SCH (10:28)
--- NOTE | 2017-06-04 11:55 | PRG ---
DATE OF SERVICE: 06/04/2017 SUBJECTIVE: The patient is doing well. He is still very reluctant to go home. OBJECTIVE: VITAL SIGNS: Temperature 97.5, pulse 72, respirations 16, O2 sat 96% on room air. HEENT: Unremarkable. NECK: No JVD. CHEST: Clear without wheezing. CARDIAC: S1 and S2 regular. ABDOMEN: Soft. EXTREMITIES: No edema. ASSESSMENT: Chronic obstructive pulmonary disease exacerbation. PLAN: This patient is stable for discharge. He asked me to write a prescription for home nebulizer machine, which I will do. He is stable for discharge to home today. There is no reason to keep him in the hospital any longer.
--- NOTE | 2017-06-04 14:59 | DIS ---
DATE OF ADMISSION: 05/27/2017 DATE OF DISCHARGE: 06/04/2017 ADMITTING DIAGNOSIS: Acute chronic obstructive pulmonary disease exacerbation. DISCHARGE DIAGNOSIS: Acute chronic obstructive pulmonary disease exacerbation. SECONDARY DIAGNOSES: 1. Acute on chronic congestive heart failure. 2. Paroxysmal atrial fibrillation. 3. Gastroesophageal reflux disease. 4. Dyslipidemia. CONSULTANTS INVOLVED IN THE CARE: Dr. Tommy Houston. HISTORY OF PRESENT ILLNESS/HOSPITAL COURSE: In brief, this is a 76-year-old white male with a known history of COPD, who presented with acute shortness of breath lasting for 3 days and has been having productive sputum. The patient had a flu shot and was negative for flu at this time, and he was star ruiz on BiPAP in the ER and was admitted to the [facility]. The patient had gone off of the right BiPAP, bu t he continues to wheeze. He was seen by Dr. Houston and the patient was on IV steroids. The patien t showed good improvement and was transferred to the floor, but he continues to wheeze. The patient had a chest x-ray did not show any evidence of pneumonia. The patient was continued on the nebulizer treatments every 4 hours, and he will start nebulizer treatments every 4 hours along with IV steroid s. The patient sees Dr. Smith as an outpatient. As he was getting better, the patient was dischar [facility] home in stable condition. He was advised to follow up with Dr. Smith with a tapering dose of s teroids. The patient did not had a nebulizer at home, nebulizer prescription was given by Dr. Feliz babb and advised to slow taper for 2 weeks. To be seen by Dr. Smith. PHYSICAL EXAMINATION: On date of discharge, VITAL SIGNS: Blood pressures are 142/72, heart rate is 72, respiratory rate 16, saturation 96% on ro om air. GENERAL: The patient is moderately built and moderately nourished. He does not appear to be in acut e distress. CARDIOVASCULAR: S1, S2 normal. No murmurs, rubs or gallops. LUNGS: Bilateral air entry was equal. No wheezing, no crackles. ABDOMEN: Soft, nontender. No guarding or rebound tenderness. Bowel sounds normal. MUSCULOSKELETAL: No calf tenderness. No pedal edema. No joint tenderness. No joint swelling. SKIN: No cyanosis, no erythema, no rash, no pallor. NEUROLOGIC: Cranial examination II-XII intact. No focal deficits were noted. DISCHARGE MEDICATIONS: 1. Lansoprazole 30 mg p.o. daily. 2. Tiotropium/olodaterol 4 grams inhalation daily. 3. Aspirin 325 mg daily. 4. Bisoprolol 10 mg p.o. daily. 5. Fluticasone 1 spray daily. 6. Guaifenesin 200 mg p.o. b.i.d. The patient was given prednisolone to be taken at 20 mg p.o. b.i.d. for 4 days and 10 mg p.o. b.i.d. for 4 days and then 10 mg p.o. daily until he sees Dr. Smith. The patient was given nebulizer prescription and also DuoNebs. The patient is advised to take every 4-hour nebulizer treatments until he sees Dr. Smith and albuterol nebulizer treatments they can sobia e every 2 hours as needed for shortness of breath. DISCHARGE INSTRUCTIONS: 1. Continue Accutane as tolerated. 2. Advised to follow up with Dr. Smith in 2 weeks. 3. Advised to follow up with primary care physician in 1-2 weeks. 4. Advised to avoid smoking and avoid exposure to smoking. 5. Continue with the general diet. ACTIVITY: As tolerated. I spent 35 minutes with this patient.
[2017-06-04 15:28] VITALS: BP 146/66; TEMP 98.4
--- NOTE | 2017-06-21 18:18 | EKG ---
Test Reason : Blood Pressure : / mmHG Vent. Rate : 072 BPM Atrial Rate : 072 BPM P-R Int : 248 ms QRS Dur : 086 ms QT Int : 398 ms P-R-T Axes : 034 004 017 degrees QTc Int : 435 ms Sinus rhythm with 1st degree A-V block with Premature atrial complexes Otherwise normal ECG Confirmed by JABIER RAIN [id number]), editor [employer] ANKUR GABRIEL ([id number] on 06/21/2017 6:18:28 PM Referred By: MD RAIN Confirmed By:JABIER RAIN
== END 2017-06-04 15:36 | disposition home or self-care (01) | DRG 189 ==
LOC: ERS 01:18 → CCU 05:05 → T4-B 17:11
PROVIDERS: ADMIT Family Medicine; ATTEND Family Medicine
PROC: 5A09357 Assistance with Respiratory Ventilation, Less than 24 Consecutive Hours, Continuous Positive Airway Pressure (ICD-10-PCS; principal; 2017-05-27)
DX: J96.01 Acute respiratory failure with hypoxia (principal); I48.0 Paroxysmal atrial fibrillation; J44.1 Chronic obstructive pulmonary disease with (acute) exacerbation; Z95.0 Presence of cardiac pacemaker; I10 Essential (primary) hypertension; E78.5 Hyperlipidemia, unspecified; Z79.82 Long term (current) use of aspirin; Z87.891 Personal history of nicotine dependence; E66.9 Obesity, unspecified; Z68.30 Body mass index [BMI] 30.0-30.9, adult; G47.33 Obstructive sleep apnea (adult) (pediatric); K21.9 Gastro-esophageal reflux disease without esophagitis; Z88.0 Allergy status to penicillin
CPT/HCPCS: 36415; 71045; 71046; 80048; 80053; 82553; 82805; 83880; 84484; 85025; 87633; 87798; 87804; 93005; 94640; 94660; 96374; A4216; J1650; J1940; J2920; J2930; J7506; J7620; J7626

== ENCOUNTER 2017-10-26 13:59 | Emergency (ER) | payer MEDICARE, BC ==
[2017-10-26 14:43] LABS: #Basophils 0.1 thou/uL (0.0-0.2); #Eosinphils 0.3 thou/uL (0.0-0.7); #Lymphocytes 2.5 thou/uL (1.20-3.40); #Monocytes 0.6 thou/uL (0.11-0.59); #Neutrophils 4.5 thou/uL (1.40-6.50); %Basophils 0.9 % (0.0-1.0); %Eosinophils 3.7 % (0.0-10.0); %Lymphocytes 31.2 % (21.0-51.0); %Monocytes 7.4 % (0.0-10.0); %Neutrophils 56.8 % (42.0-75.0); Hemoglobin 14.5 g/dL (14.0-18.0); Mean Corpuscular HGB CONC 34.5 g/dL (32.0-36.0); Mean Corpuscular Hemoglobin 30.1 pg (27.0-31.0); Mean Corpuscular Volume 87.3 fL (78.0-98.0); Mean Platelet Volume 7.3 fL (7.4-10.4); Platelet Count 198 thou/uL (130-400); Red Blood Cell (RBC) Count 4.81 mill/uL (4.70-6.10)
--- NOTE | 2017-10-26 14:50 | RAD ---
PORTABLE CHEST: Date: 10/26/17 PROVIDED CLINICAL HISTORY: Hypertension. FINDINGS: Comparison with 06/03/17. Cardiac and mediastinal silhouette is unchanged in appearance. Left subclavian cardiac pacing device is again noted in similar position. No focal consolidation, pleural fluid, or pneumothorax apparent. IMPRESSION: No evidence for an acute cardiopulmonary process. POS: [facility]
[2017-10-26 15:06] LABS: ALT (SGPT) 22 U/L (8-55); AST (SGOT) 18 U/L (5-34); Albumin 4.4 g/dL (3.4-4.8); Alkaline Phosphatase 71 U/L (40-150); Anion Gap 14 mmol/L (10-20); BUN (Urea Nitrogen) 16 mg/dL (8.4-25.7); Bilirubin, Total 0.4 mg/dL (0.2-1.2); Calc. Creatinine Clearance 0 mL/min (70-130); Calcium 9.8 mg/dL (7.8-10.44); Carbon Dioxide 24 mmol/L (23-31); Chloride 104 mmol/L (98-107); Estimated GFR-MDRD 55; Globulin 2.7 g/dL (2.4-3.5); Glucose 99 mg/dL (83-110); Potassium 3.4 mmol/L (3.5-5.1); Protein, Total 7.1 g/dL (5.8-8.1); Sodium 139 mmol/L (136-145)
[2017-10-26 15:09] LABS: CKMB 1.5 ng/mL (0-6.6); Troponin I Less than 0.010 ng/mL (< 0.028)
[2017-10-26] MEDS ORDERED: Prasugrel 10 MG TAB ONE (16:38)
== END 2017-10-26 16:54 | disposition home or self-care (01) ==
LOC: ERS 13:59
DX: R00.2 Palpitations (principal); R19.7 Diarrhea, unspecified; R42 Dizziness and giddiness; T36.8X5A Adverse effect of other systemic antibiotics, initial encounter; J44.9 Chronic obstructive pulmonary disease, unspecified; I48.91 Unspecified atrial fibrillation; Z79.82 Long term (current) use of aspirin; Z79.4 Long term (current) use of insulin; Z79.899 Other long term (current) drug therapy; Z87.891 Personal history of nicotine dependence
CPT/HCPCS: 36415; 71045; 80053; 82553; 84484; 85025; 93005; 94760

== ENCOUNTER 2017-12-21 19:10 | Emergency (ER) | payer MEDICARE, BC ==
[2017-12-21 19:53] LABS: #Eosinphils 0.3 thou/uL (0.0-0.7); #Lymphocytes 1.4 thou/uL (1.20-3.40); #Monocytes 0.7 thou/uL (0.11-0.59); #Neutrophils 5.4 thou/uL (1.40-6.50); %Basophils 0.5 % (0.0-1.0); %Eosinophils 3.8 % (0.0-10.0); %Lymphocytes 18.3 % (21.0-51.0); %Monocytes 8.3 % (0.0-10.0); Hemoglobin 12.8 g/dL (14.0-18.0); Mean Corpuscular HGB CONC 34.3 g/dL (32.0-36.0); Mean Corpuscular Hemoglobin 30.2 pg (27.0-31.0); Mean Corpuscular Volume 88.1 fL (78.0-98.0); Mean Platelet Volume 7.4 fL (7.4-10.4); Platelet Count 181 thou/uL (130-400); RBC Distribution Width 13.2 % (11.5-14.5); Red Blood Cell (RBC) Count 4.24 mill/uL (4.70-6.10); White Blood Cell (WBC) Count 7.8 thou/uL (4.8-10.8)
[2017-12-21 20:17] LABS: ALT (SGPT) 13 U/L (8-55); AST (SGOT) 19 U/L (5-34); Albumin 3.9 g/dL (3.4-4.8); Alkaline Phosphatase 71 U/L (40-150); Anion Gap 14 mmol/L (10-20); BUN (Urea Nitrogen) 9 mg/dL (8.4-25.7); Bilirubin, Total 0.5 mg/dL (0.2-1.2); CK (CPK) 72 U/L (30-200); Calc. Creatinine Clearance 0 mL/min (70-130); Calcium 9.2 mg/dL (7.8-10.44); Carbon Dioxide 22 mmol/L (23-31); Chloride 104 mmol/L (98-107); Estimated GFR-MDRD 68; Globulin 3.2 g/dL (2.4-3.5); Glucose 118 mg/dL (83-110); Potassium 4.4 mmol/L (3.5-5.1); Protein, Total 7.1 g/dL (5.8-8.1); Sodium 136 mmol/L (136-145)
[2017-12-21 20:21] LABS: CKMB 1.1 ng/mL (0-6.6); Troponin I Less than 0.010 ng/mL (< 0.028)
--- NOTE | 2017-12-21 23:16 | ULT ---
VENOUS DUPLEX SONOGRAM LEFT LOWER EXTREMITY: History: Left leg pain and edema. FINDINGS: Left common femoral vein and greater saphenous junction were evaluated along with the left femoral, d eep femoral, popliteal, and posterior tibial vein. There is good color and spectral doppler flow, com pression and augmentation. IMPRESSION: No sonographic evidence of DVT left lower extremity. POS: [facility]
== END 2017-12-21 23:26 | disposition home or self-care (01) ==
LOC: ERS 19:10
DX: I87.8 Other specified disorders of veins (principal); R60.0 Localized edema; I48.91 Unspecified atrial fibrillation; J44.9 Chronic obstructive pulmonary disease, unspecified; Z87.891 Personal history of nicotine dependence; Z79.899 Other long term (current) drug therapy; Z79.82 Long term (current) use of aspirin
CPT/HCPCS: 80053; 82550; 82553; 83880; 84484; 85025; 85379; 93005

== ENCOUNTER 2017-12-24 18:54 | Emergency (ER) | payer MEDICARE, BC ==
[2017-12-24 19:33] LABS: #Basophils 0.1 thou/uL (0.0-0.2); #Eosinphils 0.3 thou/uL (0.0-0.7); #Lymphocytes 1.4 thou/uL (1.20-3.40); #Monocytes 0.6 thou/uL (0.11-0.59); %Basophils 0.6 % (0.0-1.0); %Eosinophils 3.4 % (0.0-10.0); %Lymphocytes 14.9 % (21.0-51.0); %Monocytes 6.7 % (0.0-10.0); %Neutrophils 74.4 % (42.0-75.0); Hemoglobin 13.6 g/dL (14.0-18.0); Mean Corpuscular HGB CONC 34.3 g/dL (32.0-36.0); Mean Corpuscular Hemoglobin 30.1 pg (27.0-31.0); Mean Corpuscular Volume 87.9 fL (78.0-98.0); Platelet Count 229 thou/uL (130-400); RBC Distribution Width 12.8 % (11.5-14.5); Red Blood Cell (RBC) Count 4.52 mill/uL (4.70-6.10); White Blood Cell (WBC) Count 9.4 thou/uL (4.8-10.8)
[2017-12-24 19:52] LABS: CRP (Inflammatory) 17.19 mg/dL (= or < 0.5); Uric Acid 9.6 mg/dL (3.5-7.2)
[2017-12-24 19:54] LABS: ALT (SGPT) 15 U/L (8-55); AST (SGOT) 26 U/L (5-34); Albumin 4.1 g/dL (3.4-4.8); Alkaline Phosphatase 77 U/L (40-150); Anion Gap 16 mmol/L (10-20); BUN (Urea Nitrogen) 15 mg/dL (8.4-25.7); Bilirubin, Total 0.9 mg/dL (0.2-1.2); Calc. Creatinine Clearance 0 mL/min (70-130); Calcium 9.7 mg/dL (7.8-10.44); Carbon Dioxide 24 mmol/L (23-31); Chloride 101 mmol/L (98-107); Estimated GFR-MDRD 54; Globulin 4.2 g/dL (2.4-3.5); Glucose 121 mg/dL (83-110); Potassium 4.3 mmol/L (3.5-5.1); Protein, Total 8.3 g/dL (5.8-8.1); Sodium 137 mmol/L (136-145)
--- NOTE | 2017-12-24 20:20 | RAD ---
THREE VIEWS OF THE LEFT FOOT 12/24/17 COMPARISON: None. HISTORY: Bilateral lower extremity swelling and pain. First metatarsophalangeal swelling and redness. FINDINGS: Three views of the left foot shows no evidence of acute fracture or dislocation. There is subluxation of the great toe metatarsophalangeal joint. There is first metatarsal head hyperplasia. There is a p kiana-marginal erosion along the lateral aspect of the great toe metatarsophalangeal joint. Diffuse sof t tissue swelling is seen. IMPRESSION: There is a para-marginal erosion adjacent to the great toe. This could be secondary to gouty arthriti s. POS: [facility]
[2017-12-24] MEDS ORDERED: Ketorolac Tromethamine 30 MG/ML VIAL ONE (21:52)
== END 2017-12-24 22:20 | disposition home or self-care (01) ==
LOC: ERS 18:54
DX: M10.9 Gout, unspecified (principal); I48.91 Unspecified atrial fibrillation; J44.9 Chronic obstructive pulmonary disease, unspecified; Z87.891 Personal history of nicotine dependence; Z79.899 Other long term (current) drug therapy; Z79.82 Long term (current) use of aspirin
CPT/HCPCS: 80053; 84550; 85025; 85652; 86140; 96374; J1885

== ENCOUNTER 2021-01-31 09:46 | Outpatient (CLI) | payer MEDICARE, BC | END 2021-01-31 09:47 | disposition home or self-care (01) | LOC: RAD 09:46 | PROVIDERS: ATTEND Internal Medicine Critical Care Medicine | DX: R06.00 Dyspnea, unspecified (principal) | CPT/HCPCS: 71046 ==

== ENCOUNTER 2022-01-31 09:13 | Outpatient (CLI) | payer MEDICARE, BC | END 2022-01-31 09:14 | disposition home or self-care (01) | LOC: RAD 09:13 | PROVIDERS: ATTEND Internal Medicine Critical Care Medicine | DX: R06.00 Dyspnea, unspecified (principal) | CPT/HCPCS: 71046 ==

== ENCOUNTER 2022-04-09 15:43 | Emergency (ER) | payer MEDICARE, BC | END 2022-04-09 19:58 | disposition home or self-care (01) | LOC: ERS 15:43 | DX: M25.562 Pain in left knee (principal); J44.9 Chronic obstructive pulmonary disease, unspecified ==

== ENCOUNTER 2022-07-30 08:22 | Outpatient (CLI) | payer MEDICARE, BC | END 2022-07-30 08:23 | disposition home or self-care (01) | LOC: RAD 08:22 | PROVIDERS: ATTEND Internal Medicine Critical Care Medicine | DX: R06.00 Dyspnea, unspecified (principal) | CPT/HCPCS: 71046 ==

== ENCOUNTER 2022-12-21 14:52 | Outpatient (CLI) | payer MEDICARE, BC | END 2022-12-21 14:53 | disposition home or self-care (01) | LOC: RAD 14:52 | PROVIDERS: ATTEND Registered Nurse | DX: U07.1 COVID-19 (principal); J98.4 Other disorders of lung | CPT/HCPCS: 71046 ==

== ENCOUNTER 2022-12-23 02:56 | Emergency (ER) | payer MEDICARE, BC | END 2022-12-23 03:24 | disposition home or self-care (01) | LOC: ERS 02:56 | DX: U07.1 COVID-19 (principal); I48.91 Unspecified atrial fibrillation; J44.9 Chronic obstructive pulmonary disease, unspecified; Z95.0 Presence of cardiac pacemaker; Z87.891 Personal history of nicotine dependence | CPT/HCPCS: 99283 ==

== ENCOUNTER 2022-12-31 11:03 | Emergency (ER) | payer MEDICARE, BC ==
[2022-12-31 12:06] LABS: #Eosinphils 0.2 thou/uL (0.0-0.7); #Monocytes 0.7 thou/uL (0.11-0.59); #Neutrophils 5.2 thou/uL (1.40-6.50); %Basophils 0.5 % (0.0-1.0); %Eosinophils 2.3 % (0.0-10.0); %Lymphocytes 7.6 % (21.0-51.0); %Neutrophils 79.1 % (42.0-75.0); Hematocrit 31.7 % (42.0-52.0); Hemoglobin 10.2 g/dL (14.0-18.0); Mean Corpuscular HGB CONC 32.2 g/dL (32.0-36.0); Mean Corpuscular Volume 80.7 fl (78.0-98.0); Platelet Count 313 10x3/uL (130-400); RBC Distribution Width 15.9 % (11.5-14.5); Red Blood Cell (RBC) Count 3.93 mill/uL (4.70-6.10); White Blood Cell (WBC) Count 6.6 10x3/uL (4.8-10.8)
[2022-12-31 12:30] LABS: ALT (SGPT) 50 U/L (8-55); AST (SGOT) 52 U/L (5-34); Albumin 3.5 g/dL (3.4-4.8); Alkaline Phosphatase 88 U/L (40-110); Anion Gap 15 mmol/L (10-20); BUN (Urea Nitrogen) 18 mg/dL (8.4-25.7); Bilirubin, Total 0.6 mg/dL (0.2-1.2); Calc. Creatinine Clearance 0 mL/min (70-130); Calcium 9.5 mg/dL (7.8-10.44); Carbon Dioxide 22 mmol/L (23-31); Chloride 101 mmol/L (98-107); Estimated GFR 53; Globulin 3.5 g/dL (2.4-3.5); Glucose 129 mg/dL (83-110); Potassium 4.1 mmol/L (3.5-5.1); Sodium 134 mmol/L (136-145)
== END 2022-12-31 13:26 | disposition home or self-care (01) ==
LOC: ERS 11:03
DX: U07.1 COVID-19 (principal); R53.83 Other fatigue; I48.91 Unspecified atrial fibrillation; J44.9 Chronic obstructive pulmonary disease, unspecified; Z79.82 Long term (current) use of aspirin; Z87.891 Personal history of nicotine dependence
CPT/HCPCS: 36415; 71046; 80053; 85025; 93005

== ENCOUNTER 2023-05-17 15:04 | Emergency (ER) | payer MEDICARE, BC ==
[2023-05-17 16:21] LABS: #Basophils 0.1 thou/uL (0.0-0.2); #Eosinphils 0.1 thou/uL (0.0-0.7); #Monocytes 0.9 thou/uL (0.11-0.59); #Neutrophils 9.8 thou/uL (1.40-6.50); %Basophils 0.4 % (0.0-1.0); %Lymphocytes 11.6 % (21.0-51.0); %Monocytes 7.4 % (0.0-10.0); %Neutrophils 79.1 % (42.0-75.0); Hematocrit 34.3 % (42.0-52.0); Hemoglobin 10.8 g/dL (14.0-18.0); Mean Corpuscular HGB CONC 31.5 g/dL (32.0-36.0); Mean Corpuscular Hemoglobin 25.5 pg (27.0-31.0); Mean Corpuscular Volume 80.9 fl (78.0-98.0); Mean Platelet Volume 10.5 fL (7.4-10.4); Platelet Count 191 10x3/uL (130-400); RBC Distribution Width 16.1 % (11.5-14.5); Red Blood Cell (RBC) Count 4.24 mill/uL (4.70-6.10); White Blood Cell (WBC) Count 12.4 10x3/uL (4.8-10.8)
[2023-05-17 16:47] LABS: ALT (SGPT) 8 U/L (8-55); AST (SGOT) 13 U/L (5-34); Albumin 4.1 g/dL (3.4-4.8); Alkaline Phosphatase 83 U/L (40-110); Anion Gap 10 mmol/L (10-20); BUN (Urea Nitrogen) 11 mg/dL (8.4-25.7); Calc. Creatinine Clearance 0 mL/min (70-130); Calcium 9.3 mg/dL (7.8-10.44); Carbon Dioxide 26 mmol/L (23-31); Chloride 106 mmol/L (98-107); Estimated GFR 64; Glucose 108 mg/dL (83-110); Magnesium 1.9 mg/dL (1.6-2.6); Potassium 4.1 mmol/L (3.5-5.1); Protein, Total 7.1 g/dL (5.8-8.1); Sodium 138 mmol/L (136-145)
[2023-05-17 16:52] LABS: Troponin I Less than 0.010 ng/mL (< 0.028)
[2023-05-17 17:02] LABS: SARS-CoV-2 NAA Rapid Test Not Detected (NotDetected)
[2023-05-17] MEDS ORDERED: Doxycycline 100 MG CAP ONE (17:42)
== END 2023-05-17 17:41 | disposition home or self-care (01) ==
LOC: ERS 15:04
DX: J18.9 Pneumonia, unspecified organism (principal); I48.91 Unspecified atrial fibrillation; J44.9 Chronic obstructive pulmonary disease, unspecified; I25.10 Atherosclerotic heart disease of native coronary artery without angina pectoris; Z87.891 Personal history of nicotine dependence; Z95.0 Presence of cardiac pacemaker; Z79.82 Long term (current) use of aspirin; Z79.899 Other long term (current) drug therapy
CPT/HCPCS: 0240U; 71045; 80053; 83735; 83880; 84484; 85025; 93005

== ENCOUNTER 2024-02-09 22:11 | Inpatient (IN) | payer MEDICARE, BC ==
[2024-02-09 23:14] LABS: #Basophils 0.06 10x3/uL (0.0-0.2); %Basophils 0.9 % (0.0-1.0); %Eosinophils 3.1 % (0.0-10.0); %Lymphocytes 21.7 % (21.0-51.0); %Monocytes 7.9 % (0.0-10.0); %Neutrophils 66.2 % (42.0-75.0); Hematocrit 34.1 % (42.0-52.0); Hemoglobin 10.2 g/dL (14.0-18.0); Mean Corpuscular HGB CONC 29.9 g/dL (32.0-36.0); Mean Corpuscular Hemoglobin 24.4 pg (27.0-31.0); Mean Corpuscular Volume 81.6 fL (78.0-98.0); Mean Platelet Volume 10.2 fL (7.4-10.4); Platelet Count 195 10x3/uL (130-400); RBC Distribution Width 16.4 % (11.5-14.5); Red Blood Cell (RBC) Count 4.18 mill/uL (4.70-6.10)
[2024-02-09 23:28] LABS: INR-International Normal Ratio 1.1; PTT 28.5 sec (22.9-36.1); Prothrombin Time 13.9 sec (12.0-14.7)
[2024-02-10 00:10] LABS: ALT (SGPT) 9 U/L (8-55); AST (SGOT) 14 U/L (5-34); Albumin 3.6 g/dL (3.4-4.8); Alkaline Phosphatase 79 U/L (40-110); Anion Gap 14 mmol/L (10-20); BUN (Urea Nitrogen) 13 mg/dL (8.4-25.7); Bilirubin, Total 0.4 mg/dL (0.2-1.2); Calc. Creatinine Clearance 0 mL/min (70-130); Calcium 9.1 mg/dL (7.8-10.44); Carbon Dioxide 22 mmol/L (23-31); Chloride 108 mmol/L (98-107); Estimated GFR 69; Globulin 2.8 g/dL (2.4-3.5); Glucose 114 mg/dL (83-110); Magnesium 1.9 mg/dL (1.6-2.6); Potassium 3.9 mmol/L (3.5-5.1); Protein, Total 6.4 g/dL (5.8-8.1); Sodium 140 mmol/L (136-145)
[2024-02-10 00:12] LABS: Troponin I Less than 0.010 ng/mL (< 0.028)
[2024-02-10] MEDS ORDERED: Metoprolol Tartrate 5 MG (5 mL) VIAL ONE ×2 (00:47→00:49)
[2024-02-10] MEDS ORDERED: dilTIAZem 25 MG/5 ML VIAL ONE (02:04)
[2024-02-10] MEDS ORDERED: Furosemide 20 MG (2 mL) VIAL ONE (03:03)
[2024-02-10] MEDS ORDERED: dilTIAZem 125 MG/25 ML SDV ONE (03:03)
[2024-02-10] MEDS ORDERED: Sodium Chloride 0.9% 100 ML ONE (03:04)
[2024-02-10 03:34] LABS: Bacteria/HPF None Seen HPF (None Seen); Bilirubin Negative (Negative); Blood, Urine Negative (Negative); CAUTI Indications for Culture Acute Hematuria; Clarity Clear (Clear); Glucose, Urine (Dipstick) Normal (Negative); Ketone, Urine Negative (Negative); Leukocyte Negative Leu/uL (Negative); Nitrite Negative (Negative); Protein, Urine (Dipstick) Negative (Neg-Trace); RBC/HPF 0-3 HPF (0-3); Specific Gravity, Urine 1.001 (1.002-1.036); Squamous Epithelial None Seen HPF (0-3); Urobilinogen Normal mg/dL (Less than 2); WBC/HPF None Seen HPF (0-3); pH, Urine 6.5 (5.0-9.0)
[2024-02-10 03:38] LABS: Urine Culture Reflex No No
[2024-02-10] MEDS ORDERED: Ondansetron PF 4 MG/2 ML Vial IVP PRN (03:41)
[2024-02-10] MEDS ORDERED: Acetaminophen 650 MG Suppository PR PRN (03:41)
[2024-02-10] MEDS ORDERED: Ondansetron ODT 4 MG TAB PO PRN (03:41)
[2024-02-10] MEDS ORDERED: dilTIAZem 125 MG in Sodium Chloride 0.9% 100 ML IVPB SCH (03:45)
[2024-02-10 06:52] VITALS: BMI 31.1
[2024-02-10] MEDS ORDERED: Magnesium 2 GM/50 ML BAG (IN WATER) ONE (07:55)
[2024-02-10] MEDS ORDERED: Acetaminophen 325 MG TAB ONE (07:55)
[2024-02-10] MEDS: Acetaminophen 325 MG TAB PO SCH (08:02)
[2024-02-10] MEDS: Magnesium Sulfate In Water 4 GM in Premix 1 BAG IVPB SCH (08:26)
[2024-02-10] MEDS: Dronedarone HCl 400 MG TAB PO SCH (09:14)
[2024-02-10] MEDS: Famotidine/PF 20 mg/2ml Vial SLOW IVP SCH (09:14)
[2024-02-10] MEDS: Famotidine 20 MG TAB PO SCH (09:14)
[2024-02-10] MEDS: Apixaban 5 MG TAB PO SCH (09:14)
[2024-02-10] MEDS ORDERED: Albuterol 2.5 MG (3 mL) NEB NEB PRN (10:08)
[2024-02-10] MEDS: Ipratropium/Albuterol 3 ML NEB NEB PRN (11:29)
[2024-02-11 04:48] LABS: #Basophils 0.08 10x3/uL (0.0-0.2); %Basophils 1.2 % (0.0-1.0); %Eosinophils 3.4 % (0.0-10.0); %Lymphocytes 22.7 % (21.0-51.0); %Monocytes 9.3 % (0.0-10.0); %Neutrophils 63.1 % (42.0-75.0); Hematocrit 34.7 % (42.0-52.0); Hemoglobin 10.3 g/dL (14.0-18.0); Mean Corpuscular HGB CONC 29.7 g/dL (32.0-36.0); Mean Corpuscular Hemoglobin 24.3 pg (27.0-31.0); Mean Platelet Volume 10.4 fL (7.4-10.4); Platelet Count 212 10x3/uL (130-400); RBC Distribution Width 16.5 % (11.5-14.5); Red Blood Cell (RBC) Count 4.23 mill/uL (4.70-6.10)
[2024-02-11 05:27] LABS: Anion Gap 14 mmol/L (10-20); BUN (Urea Nitrogen) 17 mg/dL (8.4-25.7); Calc. Creatinine Clearance 55 mL/min (70-130); Calcium 8.8 mg/dL (7.8-10.44); Carbon Dioxide 24 mmol/L (23-31); Chloride 104 mmol/L (98-107); Estimated GFR 55; Glucose 105 mg/dL (83-110); Magnesium 2.5 mg/dL (1.6-2.6); Potassium 3.8 mmol/L (3.5-5.1); Sodium 138 mmol/L (136-145)
[2024-02-11] MEDS: Diltiazem HCl/D5W 125 MG in Premix 1 BAG IVPB SCH (06:53)
[2024-02-11] MEDS ORDERED: FLU (Fluad Triv) TS24-25 (65UP)/MF59C/PF 45 MCG/0.5 ML Syringe IM ONE (09:00)
[2024-02-11] MEDS ORDERED: Acetaminophen 325 MG TAB PO PRN ×2 (09:08→09:15)
[2024-02-11] MEDS: Finasteride 5 MG TAB PO SCH (09:31)
[2024-02-11] MEDS: Potassium Chloride 20 MEQ TAB PO SCH ×2 (09:32→09:49)
[2024-02-11] MEDS: Bisoprolol Fumarate 5 MG TAB PO SCH (09:32)
[2024-02-11 12:18] VITALS: BP 145/63; TEMP 96.7
== END 2024-02-11 14:30 | disposition home or self-care (01) | DRG 309 ==
LOC: ERS 22:11 → ERHOLD 02-10 04:30 → 2NO 02-10 08:10
PROVIDERS: ADMIT Student in an Organized Health Care Education/Training Program; ATTEND Internal Medicine
DX: I48.0 Paroxysmal atrial fibrillation (principal); I50.32 Chronic diastolic (congestive) heart failure; Z88.8 Allergy status to other drugs, medicaments and biological substances; Z79.82 Long term (current) use of aspirin; Z79.899 Other long term (current) drug therapy; J44.9 Chronic obstructive pulmonary disease, unspecified; Z95.0 Presence of cardiac pacemaker; N40.0 Benign prostatic hyperplasia without lower urinary tract symptoms; Z87.891 Personal history of nicotine dependence; I25.10 Atherosclerotic heart disease of native coronary artery without angina pectoris; Z88.0 Allergy status to penicillin; K21.9 Gastro-esophageal reflux disease without esophagitis; E78.5 Hyperlipidemia, unspecified; I11.0 Hypertensive heart disease with heart failure; Z98.890 Other specified postprocedural states; E83.42 Hypomagnesemia; E87.6 Hypokalemia; E66.9 Obesity, unspecified; Z68.21 Body mass index [BMI] 21.0-21.9, adult; D63.8 Anemia in other chronic diseases classified elsewhere
CPT/HCPCS: 36415; 71045; 80048; 80053; 81001; 83735; 83880; 84484; 85025; 85610; 85730; 93005; 94640; 96365; 96366; 96375; 96376; J1940; J3475; J7620